=== PATIENT | female | born 1935 | race Caucasian/White ===

== ENCOUNTER 2021-05-04 13:01 | Emergency (ER) | payer MEDICARE, OTHER ==
[~2021-05-04] VITALS: Ht 162.6 cm; Wt 64.0 kg
[~2021-05-04 13:01] MED LIST: AMLODIPINE BESY10 MG PO; ASPIR 8181 MG PO; BIOTIN5000 MCG PO; CIPRO500 MG PO; CLOPIDOGREL75 MG PO; DAILY GARLIC O400 MG PO; FOLIC ACID1 MG PO; LOSARTAN POTAS100 MG PO; METFORMIN HCL500 M1 PO; METOPROLOL TAR100 MG PO; NIACIN500 M1 PO; PULMICORT FLE180 MCG INH; SIMVASTATIN40 MG PO; SPIRONOLACTONE25 MG PO; VENTOLIN HFA18 GM INH; VITAMIN C500 M1 PO; ZINC50 M1 PO
[2021-05-04] MEDS ORDERED: OMEPRAZOLE20 MG PO (13:25)
--- NOTE | 2021-05-04 15:14 | EKG ---
[facility] [address] [facility] [place] [address] Signed Normal sinus rhythm Left axis deviation Incomplete left bundle branch block Abnormal ECG When compared with ECG of 18-OCT-2016 13:01, Incomplete left bundle branch block is now present Confirmed by LAKHWINDER GORDON DO ([id number]) on 05/04/2021 3:14:00 PM Electronically Signed By: LAKHWINDER GORDON DO 05/04/21 1514 PATIENT NAME: JENNIFERBRYANMatthias ESCALANTE Electrocardiogram DATE OF : 39 PHYSICIAN: LAKHWINDER GORDON DO REPORT #: [id number] REPORT IS CONFIDENTIAL AND NOT TO BE RELEASED WITHOUT AUTHORIZATION
== END 2021-05-04 17:00 | disposition short-term general hospital (02) ==
LOC: ED 13:01
PROC: 0T2BX0Z Change Drainage Device in Bladder, External Approach (ICD-10-PCS; principal; 2021-05-04)
DX: S72.141A Displaced intertrochanteric fracture of right femur, initial encounter for closed fracture (principal); W18.30XA Fall on same level, unspecified, initial encounter; I10 Essential (primary) hypertension; E11.9 Type 2 diabetes mellitus without complications; I25.10 Atherosclerotic heart disease of native coronary artery without angina pectoris; J45.909 Unspecified asthma, uncomplicated; Z86.73 Personal history of transient ischemic attack (TIA), and cerebral infarction without residual deficits; Z91.041 Radiographic dye allergy status; Z88.0 Allergy status to penicillin; Z91.013 Allergy to seafood; Z88.5 Allergy status to narcotic agent; Z88.8 Allergy status to other drugs, medicaments and biological substances; Z91.040 Latex allergy status; Z79.82 Long term (current) use of aspirin; Z79.899 Other long term (current) drug therapy; Z20.822 Contact with and (suspected) exposure to COVID-19
CPT/HCPCS: 51702; 73502; 80053; 81001; 85025; 85610; 93005; 93010; 99285-25; C9803; J2405; J3010; U0003

== ENCOUNTER 2021-07-29 09:46 | Emergency (ER) | payer MEDICARE ==
[~2021-07-29] VITALS: Ht 162.6 cm; Wt 66.0 kg
[~2021-07-29 09:46] MED LIST changes: +OMEPRAZOLE20 MG PO
== END 2021-07-29 13:00 | disposition home or self-care (01) ==
LOC: ED 09:46
DX: U07.1 COVID-19 (principal); E11.9 Type 2 diabetes mellitus without complications; I10 Essential (primary) hypertension; J45.909 Unspecified asthma, uncomplicated; I25.10 Atherosclerotic heart disease of native coronary artery without angina pectoris; Z91.018 Allergy to other foods; Z91.040 Latex allergy status; Z88.8 Allergy status to other drugs, medicaments and biological substances; Z88.0 Allergy status to penicillin; Z88.5 Allergy status to narcotic agent; Z79.899 Other long term (current) drug therapy; Z79.82 Long term (current) use of aspirin; Z79.84 Long term (current) use of oral hypoglycemic drugs; Z23 Encounter for immunization; Z91.013 Allergy to seafood
CPT/HCPCS: 99283-25; M0247

== ENCOUNTER 2023-06-15 06:30 | Day surgery (SDC) | payer MEDICARE, OTHER ==
[2023-06-14 09:41] VITALS: BP 134/70
[~2023-06-15] VITALS: Ht 165.1 cm; Wt 55.5 kg
[~2023-06-15 06:30] MED LIST changes: +DIPYRIDAMOLE25 MG PO; -OMEPRAZOLE20 MG PO; +PRILOSEC OTC20 MG PO
[2023-06-15 06:53] VITALS: BP 176/67
[2023-06-15 07:56] LABS: ALBUMIN 2.5 g/dL (3.4-5.0); ALBUMIN/GLOBULIN RATIO 0.66 (1.1-2.4); BILIRUBIN, TOTAL 0.4 ng/dL (0.2-1.0); BUN/CREATININE RATIO 9.09 (6.0-28.6); CALCIUM 8.9 mg/dL (8.5-10.1); CREATININE, SERUM 1.1 mg/dL (0.55-1.02); PROTEIN, TOTAL 6.3 g/dL (6.4-8.2)
[2023-06-15 11:29] LABS: ANION GAP 15.1 (7-21); BUN/CREATININE RATIO 11.36 (6.0-28.6); CALCIUM 9.1 mg/dL (8.5-10.1); CREATININE, SERUM 0.88 mg/dL (0.55-1.02); POTASSIUM 3.1 mmol/L (3.5-5.1)
[2023-06-15 12:55] VITALS: BP 150/64
[2023-06-15 13:02] LABS: BASOPHILS 0.7 % (0-2); HEMOGLOBIN 10.5 g/dL (12.0-18.0)
[2023-06-15 13:04] LABS: EOSINOPHILS 0.7 % (0-6); HEMATOCRIT 32.8 % (35.0-50.0); LYMPHOCYTES 17.4 % (24-44); MCH 25.2 (27-36); MCHC 32.1 g/dl (30-36); MCV 78.5 fl (81-99); MONOCYTES 5.9 % (0-12); NEUTROPHILS 75.3 % (39-80); PLATELET COUNT 496 K/uL (140-440); RBC 4.18 M/ul (4.3-5.7); RDW 24.1 (10.5-15.0)
[2023-06-15 13:19] LABS: ALBUMIN 2.5 g/dL (3.4-5.0); ALBUMIN/GLOBULIN RATIO 0.69 (1.1-2.4); ANION GAP 12.8 (7-21); BILIRUBIN, TOTAL 0.4 ng/dL (0.2-1.0); BUN/CREATININE RATIO 10.46 (6.0-28.6); CALCIUM 8.9 mg/dL (8.5-10.1); CREATININE, SERUM 0.86 mg/dL (0.55-1.02); POTASSIUM 2.8 mmol/L (3.5-5.1); PROTEIN, TOTAL 6.1 g/dL (6.4-8.2)
[2023-06-18 08:06] LABS: CARCINOEMBRYONIC ANTIGEN 29.5 ng/mL (())
--- NOTE | 2023-06-20 09:17 | OR ---
[facility] [address] [place], [place] [address] Signed DATE OF OPERATION: 06/15/2023 SURGEON: Mitchell Bella MD PREOPERATIVE DIAGNOSES: Recent anemia, status post 3 units of packed red cell transfusion; palpable mass in right lower abdomen. CT scan findings consistent with ascending colon tumor. POSTOPERATIVE DIAGNOSES: 1. Two lesion of the right mid colon and cecal area, both consistent with neoplasm of colon. 2. Diverticulosis. 3. Sessile polyp, left colon. 4. Internal hemorrhoids. PROCEDURES: 1. Total colonoscopy to cecum with cold morcellation biopsies of cecal lesion and mid ascending colon lesion. 2. Endoscopic tattoo marking right mid colon and cecal area. 3. Cold snare polypectomy x1. ANESTHESIA: Intravenous sedation, propofol infusion; Mauro Garrett CRNA INDICATIONS: This debilitated 88-year-old white woman is a patient Dr. Young. She was seen on an urgent walk-in basis at the request of Dr. 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 She underwent a CT scan of the abdomen and pelvis on June 07, 2023, showing a lobulated wall thickening in the ascending colon measuring 6.5 cm in length with mild pericolonic stranding. There was no evidence of metastatic disease. Right-sided pericolonic lymph nodes were noted, the largest which was 9 mm in size. She has had no overt rectal bleeding and no hematemesis. She has had a weight loss of 20 pounds over the past few months and self described diarrhea. She is admitted at this time to undergo confirmatory colonoscopy rather of what is probably a right-sided colon cancer accounted for anemia, weight loss and so on. She understands as does her daughter, Jaimee. There are risk of bleeding, infection, perforation, and other unforeseen complications. Electronically Signed By: MITCHELL BELLA MD 06/20/23 0917 PATIENT NAME: BRYAN RODRIGUEZ OPERATIVE REPORT DATE OF : 39 REPORT #: [id number] PHYSICIAN: MITCHELL BELLA MD PCP: BETHANY YOUNG MD REPORT IS CONFIDENTIAL AND NOT TO BE RELEASED WITHOUT AUTHORIZATION [facility] [address] [place], [place] [address] Signed FINDINGS: The prep was quite good. Complete colonoscopy was undertaken to what appeared to be the cecum. There was a lobulated diffuse mass at the cecal level, which was biopsied and Endomark tattoo dye applied. In the mid ascending colon was another lesion not as large, but definitely worrisome for malignancy, which was similarly biopsied and tattooed. Remaining colon showed scattered diverticula and more intensely noted in the sigmoid and left colon and a sessile polyp of the left colon, requiring cold snare resection. Internal hemorrhoids were noted as well. PROCEDURE IN DETAIL: The patient was brought to the endoscopy suite and placed in lateral decubitus position given intravenous sedation to the point of slurred speech and nystagmus with full cardiopulmonary monitoring by the college teacher with propofol infusional sedation technique. Of note, she presented with hypokalemia with a preoperative serum potassium of 2.7. Repeat potassium this morning was 3.0. She underwent 20 mEq replacement of potassium and her potassium is now 3.1. She was additionally given magnesium sulfate. She was given intravenous sedation to the point of slurred speech and nystagmus. Digital rectal examination was performed which showed no sign of abnormality. An Olympus video colonoscope was passed in the rectum and manipulated throughout the colon noting diverticular changes in sigmoid and left colon. Scope was advanced beyond the transverse colon to what appeared to be the mid ascending colon. A somewhat amorphous smooth polypoid lesion was noted there. The scope was advanced further ultimately to what appeared to be the cecum and ileocecal valve was multilobulated but diffusely infiltrative mass of the cecum. This was multiply biopsied. The area was marked with Endomark tattoo dye using a sclerotherapy needle. Care was taken to apply dye on all sides of colon. The scope was withdrawn in the mid ascending colon lesion identified once again, tattoo markings applied similarly and biopsies additionally taken there. Further withdrawal of scope confirmed diverticular changes scattered through the transverse colon and more so in the left colon. A sessile polyp was noted in the left colon. This was excised with cold snare technique. The specimen was passed for pathology. Further withdrawal showed intense diverticular change of sigmoid. The rectum was normal. Retroflexed view was normal showing thin internal hemorrhoidal change. The scope was removed. The patient was taken to recovery room in good condition. CONCLUDING DIAGNOSES: Most likely neoplastic process at the cecum that is malignant. The possibility of Electronically Signed By: MITCHELL BELLA MD 06/20/23 0917 PATIENT NAME: BRYAN RODRIGUEZ OPERATIVE REPORT DATE OF : 39 REPORT #: [id number] PHYSICIAN: MITCHELL BELLA MD PCP: BETHANY YOUNG MD REPORT IS CONFIDENTIAL AND NOT TO BE RELEASED WITHOUT AUTHORIZATION [address] [place], [place] [address] Signed benign bulky lesion of the right mid colon was also noted. Both areas had been marked successfully with Endomark tattoo dye. Diverticular change of the sigmoid and left colon were noted to have a pull through the left colon unlikely to be malignant in any way. I will be recommending a right colectomy, possibly by a laparoscopic approach. We will obtain a CEA, Chem 20 and CBC today as baseline. She will follow up with us in the next week and we will make plans for resection depending on operative findings and so on. MD MAKAYLA Feliciano/MODL /[id number] cc: Dr. Young Copies: ~ Electronically Signed By: MITCHELL BELLA MD 06/20/23 0917 PATIENT NAME: BRYAN RODRIGUEZ OPERATIVE REPORT DATE OF : 39 REPORT #: [id number] PHYSICIAN: MITCHELL BELLA MD PCP: BETHANY YOUNG MD REPORT IS CONFIDENTIAL AND NOT TO BE RELEASED WITHOUT AUTHORIZATION
--- NOTE | 2023-06-21 12:08 | PATH ---
[facility] [address] [place], [place] [address] Signed SPECIMEN(S): A CECUM POLYP SPECIMEN(S): B MID ASCENDING POLYP SPECIMEN(S): C TRANSVERSE POLYP SPECIMEN(S): D SPLENIC FLEXURE POLYP, 30 CM SPECIMEN SOURCE: A. CECUM POLYP B. MID ASCENDING POLYP C. TRANSVERSE POLYP D. SPLENIC FLEXURE POLYP, 30 CM CLINICAL HISTORY: Colonoscopy with possible biopsy with Propofol. Abdominal mass, anemia, diarrhea. Postop: Neoplasm mid right colon, neoplasm cecum, diverticulosis, polyp. FINAL PATHOLOGIC DIAGNOSIS: A. 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 B. Mid ascending polyp: - Tubular adenoma with focal high-grade dysplasia. C. Transverse polyp: - Tubular adenoma (one fragment). D. Splenic flexure polyp at 30 cm: - Hyperplastic polyp (three fragments). COMMENT: Microsatellite instability testing by immunohistochemistry is pending on cecum polyp and will be reported in an addendum. As part of [facility]' Quality Improvement Program, this case was reviewed by another member of our pathology staff. Diagnostic notification to the office of Dr. Young is initiated by Dr. Dodge and will be recorded separately. JaunVR:IJN:erica MICROSCOPIC EXAMINATION: Histologic sections of all submitted blocks are examined by light microscopy. These findings, together with the gross examination, support the pathologic diagnosis. PATIENT NAME: BRYAN RODRIGUEZ PATHOLOGY DATE OF : 39 REPORT #: [id number] PHYSICIAN: QUANG WARD PCP: BETHANY YOUNG MD REPORT IS CONFIDENTIAL AND NOT TO BE RELEASED WITHOUT AUTHORIZATION [facility] [address] [place], [place] [address] Signed GROSS DESCRIPTION: A. The specimen, labeled and designated "Pointer, 1" and designated on the requisition "polypectomy, cecum, tumor," is received in formalin and consists of two valderrama, soft tissue fragments, ranging from 0.2-0.4 cm. Entirely submitted in (A1). B. The specimen, labeled and designated "Pointer, 2" and designated on the requisition "polypectomy, ascending/right, mid, neoplasm," is received in formalin and consists of two valderrama, soft tissue fragments, ranging from 0.3-0.4 cm. Entirely submitted in (B1). C. The specimen, labeled and designated "Pointer, 3" and designated on the requisition "polypectomy, transverse," is received in formalin and consists of one valderrama, soft tissue fragment, 0.4 cm. Entirely submitted in (C1). D. The specimen, labeled and designated "Pointer, 4" and designated on the requisition "30 cm, polypectomy, splenic flexure," is received in formalin and consists of one valderrama, soft tissue fragment, 0.7 cm. The possible resection margin is inked blue, and the piece is trisected and submitted entirely in (D1). AC (under the direct supervision of a pathologist) The Gross Description was prepared using a voice recognition system. The report was reviewed for accuracy; however, sound-alike word errors, addition and/or deletions may occur. If there is any question about this report, please contact Client Services. ADDITIONAL NOTES: Immunohistochemical and/or in situ hybridization studies if performed in this case included appropriate positive controls that reacted as expected. This test was developed and its performance characteristics determined by [facility]. It has not been cleared or approved by the U.S. Food and Drug Administration. The FDA has determined that such clearance or approval is not necessary. This test is used for clinical purposes. It should not be regarded as investigational or for research. [facility] is certified under the Clinical Laboratory Improvement Amendments of 1988 (CLIA) as qualified to perform high complexity clinical laboratory testing. PERFORMING LABORATORY: Technical component was performed by [facility], [address] [place] [id number] (CLIA# [id number]). Professional interpretation was performed by [facility] - [place] [facility], [address] PATIENT NAME: BRYAN RODRIGUEZ PATHOLOGY DATE OF : 39 REPORT #: [id number] PHYSICIAN: SUZYwalkby SYLVIA PCP: BETHANY YOUNG MD REPORT IS CONFIDENTIAL AND NOT TO BE RELEASED WITHOUT AUTHORIZATION [facility] [address] [place], [place] [address] [place] [address] (CLIA#: [id number]). Diagnostician: Adiel Dodge MD Pathologist Electronically Signed 06/20/2023 Copies: ~ PATIENT NAME: BRYAN RODRIGUEZ PATHOLOGY DATE OF : 39 REPORT #: [id number] PHYSICIAN: QUANG PATHOLOGY PCP: BETHANY YOUNG MD REPORT IS CONFIDENTIAL AND NOT TO BE RELEASED WITHOUT AUTHORIZATION
== END 2023-06-15 13:22 | disposition home or self-care (01) ==
LOC: DS 06:30 → OPS 06:30 → DS 07:30 → OPS 07:30
PROVIDERS: Nurse Anesthetist, Certified Registered; ATTEND Surgery
PROC: 0DBL8ZZ Excision of Transverse Colon, Via Natural or Artificial Opening Endoscopic (ICD-10-PCS; 2023-06-15)
PROC: 0DBG8ZZ Excision of Left Large Intestine, Via Natural or Artificial Opening Endoscopic (ICD-10-PCS; 2023-06-15)
PROC: 0DBK8ZZ Excision of Ascending Colon, Via Natural or Artificial Opening Endoscopic (ICD-10-PCS; principal; 2023-06-15 07:30)
DX: D12.2 Benign neoplasm of ascending colon (principal); D12.0 Benign neoplasm of cecum; D12.3 Benign neoplasm of transverse colon; K63.5 Polyp of colon; K64.8 Other hemorrhoids; K57.30 Diverticulosis of large intestine without perforation or abscess without bleeding; E11.22 Type 2 diabetes mellitus with diabetic chronic kidney disease; I12.9 Hypertensive chronic kidney disease with stage 1 through stage 4 chronic kidney disease, or unspecified chronic kidney disease; N18.9 Chronic kidney disease, unspecified; J45.909 Unspecified asthma, uncomplicated; R63.4 Abnormal weight loss; D50.9 Iron deficiency anemia, unspecified; Z86.73 Personal history of transient ischemic attack (TIA), and cerebral infarction without residual deficits; Z88.0 Allergy status to penicillin; Z88.5 Allergy status to narcotic agent; Z88.8 Allergy status to other drugs, medicaments and biological substances; Z90.79 Acquired absence of other genital organ(s)
CPT/HCPCS: 00811; 36415; 80048; 80053; 82378; 85025; 85060; 88305; 88341; 88342; J2001; J2704; J3475; J3480; J3490; J7060; J7121

== ENCOUNTER 2023-06-26 15:38 | Inpatient (IN) | payer MEDICARE, OTHER ==
[~2023-06-26] VITALS: Ht 165.1 cm; Wt 46.0 kg
--- NOTE | 2023-06-29 00:30 | NUR ---
ROUNDED ON pt, pt RESTING IN BED ON RA. RR EVEN AND UNLABORED. NO DISTRESS NOTED. IV SITE WNL, FLUIDS INFUSING DIRECTED. CALL LIGHT IN REACH.
[2023-06-29 08:15] VITALS: BP 130/56
[2023-06-29] MEDS ORDERED: DIPYRIDAMOLE25 MG (08:23)
[2023-06-29] MEDS ORDERED: IRBESARTAN150 MG PO (08:30)
--- NOTE | 2023-06-29 09:50 | NUR ---
CCU ROUNDS. PT ACCOMPANIED BY DAUGHTER SUSAN. BOTH EXPRESSED HOPE AND OPTIMISM. PROVIDED SUPPORTIVE PRESENCE; FACILITATED STORY TELLING; PROVIDED SILENT PRAYER.
--- NOTE | 2023-06-29 10:34 | NUR ---
dr patton and disk recordist both in to see pt.
--- NOTE | 2023-06-29 15:12 | NUR ---
06/29/23 1512 Skyla Vinson PT TO PACU ORAL AIWAY IN PLACE O2 VIA MASK FOGGING NOTED IN MASK. PT NEEDS JAW THRUST TO MAINTAIN AIRWAY.
[2023-06-29 16:30] VITALS: BP 133/55
--- NOTE | 2023-06-29 16:30 | NUR ---
PT ARRIVES TO FLOOR IN BED ACCOMPANIED BY KERRY Judge RN. BEDSIDE REPORT RECEIVED. PT RESPONDS WHEN ADDRESSED. VITALS COMPLETE. CPOX PLACED. MIDLINE DRESSING TO ABD NOTED TO HAVE SCANT AMOUNT OF DRAINAGE. RLQ LAP SITE STERI STRIPS IN PLACE SCANT AMOUNT OF DRAINAGE NOTED, OTHERWISE D/I LLQ LAP SITE STERI STRIPS IN PLACE WITH SCANT AMOUNT OF DRAINAGE NOTED, OTHERWISE D/I. MID UPPER ABD LAP SITE COVERED WITH GAUZE D/I WITH SCANT AMOUNT OF DRAINAGE NOTED. IV FLUSHES WNL. IV FLUIDS STARTED, SEE MAR. PT REFUSES PO MEDICATIONS AT THIS TIME AND STATES "I WANT TO SLEEP." PT DENIES ANY OTHER NEEDS AT THIS TIME. CALL LIGHT IN REACH. FAMILY IN ROOM.
[2023-06-29 17:30] VITALS: BP 130/57
--- NOTE | 2023-06-29 17:38 | NUR ---
IN TO ROUND ON PT. PT RESTING IN BED SEMI-FOWLERS WITH EYES CLOSED, RR EVEN AND UNLABORED. PT RESPONDS WHEN ADDRESSED. TAWNY EUCEDA IN ROOM. VITALS AND I&Os COMPLETE. ASSESSMENT COMPLETE. LUNG SOUNDS CLEAR IN RUL AND CARMEN. DIMISHED IN RLL AND LLL. BOWEL TONES HYPOACTIVE. ABD TENDER WITH PALPATION. PT CONTINUES TO REST. PT DENIES ANY OTHER NEEDS AT THIS TIME. CALL LIGHT IN REACH. FAMILY IN ROOM.
[2023-06-29] MEDS ORDERED: ASPIRIN-DIPYRI1 EACH PO (17:53)
[2023-06-29] MEDS ORDERED: SIMVASTATIN20 MG PO (17:53)
[2023-06-29] MEDS ORDERED: SUCRALFATE1 GM PO (17:54)
[2023-06-29] MEDS ORDERED: METFORMIN HCL500 MG PO (17:54)
[2023-06-29 18:34] VITALS: BP 131/59
--- NOTE | 2023-06-29 18:40 | NUR ---
IN TO ROUND ON PT. PT LAYIG IN BED. PT RESPONDS WHEN ADDRESSED. VITALS COMPLETE. PT REQUESTING TO BE REPOSITIONED. TAMIKO TY IN TO ASSIST WITH TURNING PT TO LEFT SIDE. PILLOWS PLACED BEWTEEN KNEES AND UNDER RIGHT SIDE. IV INFUSING WNL. PT DENIES ANY OTHER NEEDS AT THIS TIME. CALL LIGHT IN REACH. FAMILY IN ROOM.
[2023-06-29 19:15] VITALS: BP 130/53
--- NOTE | 2023-06-29 19:15 | NUR ---
SHIFT REPORT RECEIVED FROM DAYSFLFT TAMIKO العلي AT BEDSIDE. pt AWAKE AND RESTING IN BED, BOOSTED IN BED, LAYING ON LEFT SIDE. MIDLINE DRESSING IN PLACE TO ABD ALONG WITH X3 LAP SITES-ALL WNL WITH SCANT RED SHADOWING. IV SITE WNL, FLUIDS INFUSING DIRECTED. NO ADDITIONAL NEEDS OR CONCERNS VERBALIZED. CALL LIGHT IN REACH AND LAST SET POST OP VSS AND CHARTED.
--- NOTE | 2023-06-29 19:18 | EKG ---
[facility] [address] [facility] [place] [address] Signed Normal sinus rhythm Left axis deviation Incomplete left bundle branch block Minimal voltage criteria for LVH, may be normal variant Abnormal ECG When compared with ECG of 04-MAY-2021 13:44, Inverted T waves have replaced nonspecific T wave abnormality in Inferior leads Confirmed by NADJA YOON MD ([id number]) on 06/29/2023 7:18:24 PM Electronically Signed By: NADJA YOON 06/29/23 1918 PATIENT NAME: BRYAN RODRIGUEZ AVA Electrocardiogram DATE OF : 39 PHYSICIAN: NADJA YOON REPORT #: [id number] REPORT IS CONFIDENTIAL AND NOT TO BE RELEASED WITHOUT AUTHORIZATION
[2023-06-29 20:24] VITALS: BP 128/63
--- NOTE | 2023-06-29 20:35 | NUR ---
PT. CALLED NURSES STATION REQUESTING REPOSITIONING ASSISTANCE. THIS RETRIMMER AND PRIMARY RN ASSISTED PT. TO SIT UP IN BED. PT. VITALS AND I/OS DOCUMENTED APPROPRIATELY. PT. ASSISTED WITH DRINKS OF FRESH WATER. CALL LIGHT LEFT WITHIN REACH. NO OTHER IMMEDIATE NEEDS AT THIS TIME.
--- NOTE | 2023-06-29 21:02 | NUR ---
ASSESSMENT COMPLETE, SCHEDULED MEDS GIVEN, VSS. NO ISSUES SWALLOWING NOTED. MIDLINE AND LAP SITES X3 REMAIN THE SAME REGARDING SHADOWING, SMALL LUMP NOTED UNDER LLQ LAP SITE, STRIKE PLATE ATTACHER MARSHALL AWARE AND ALSO ASSESSED SITE. pt REPORTS TOLERABLE PAIN AT 3/10, DENIES NAUSEA. CALL LIGHT IN REACH.
--- NOTE | 2023-06-29 21:45 | NUR ---
DR BELLA AT RN STATION AND ASSESSED SMALL LUMP LIKE SITE TO LLQ STERI STRIP SITE, SITE ASSESSED BY DR BELLA, PER MD, SITE WNL AND ABD OVERALL WNL POST-OP. ALSO DISCUSSED WITH DR BELLA REGARDING BLOOD SUGAR CHECKS pt IS DIABETIC, DR BELLA TO PLACE ORDERS FOR BLOOD SUGAR CHECKS. NO FURTHER NEEDS, CALL LIGHT IN REACH.
--- NOTE | 2023-06-29 22:40 | NUR ---
SCHEDULED TYLENOL AND IV ABX GIVEN-SEE EMAR. IV SITE WNL, FLUIDS INFUSING DIRECTED. BED RESTING IN BED WITH HOB ELEVATED, CALL LIGHT IN REACH. CPOX REMAINS ON FOR SAFETY.
--- NOTE | 2023-06-29 23:08 | NUR ---
PRIMARY RN ASKED THIS DIRECTOR PATIENT ACCOUNTING TO OBTAIN GLUCOSE CHECK ON PT. RN NOTIFIED OF GLUCOSE READING. PT. REQUESTS ASSISTANCE WITH REPOSITIONING THIS DIRECTOR PATIENT ACCOUNTING ASSISTED PT. CALL LIGHT LEFT WITHIN REACH. NO OTHER NEEDS AT THIS TIME.
--- NOTE | 2023-06-29 23:20 | NUR ---
DR BELLA LEFT HOSPITAL WITHOUT PLACING ORDERS FOR INSULIN SS, TELEPHONE CALL MADE TO DR BELLA AND TELEPHONE ORDER READ BACK FOR REGULAR HUMULIN INSULIN [facility], LOW SCALE. PILOT CONTROL OPERATOR HELPERTAMIKO OLIVARES TO PLACE ORDER AND ADMINISTER INSULIN SS DIRECTED, MD AWARE OF EVENING BS RESULT OF 214.
[2023-06-30] VITALS (8 sets, daily range): BP systolic 113–139; BP diastolic 46–55
--- NOTE | 2023-06-30 00:30 | NUR ---
ROUNDED ON pt, pt RESTING IN BED ON RA. RR EVEN AND UNLABORED. NO DISTRESS NOTED. IV SITE WNL, FLUIDS INFUSING DIRECTED. CALL LIGHT IN REACH.
--- NOTE | 2023-06-30 02:23 | NUR ---
PRN BLOOD GLUCOSE TAKEN PER RN REQUES. PT. COLON BAG EMPTIED, I/O CHARTED. FRESH WATER PROVIDED. CALL LIGHT LEFT WITHIN REACH. NO OTHER NEEDS AT THIS TIME.
--- NOTE | 2023-06-30 03:32 | NUR ---
ASSESSMENT COMPLETE, NO ACUTE CHANGES. pt REPROTS MINIMAL PAIN TO ABD, RATES 1/10, DENIES NAUSEA. PROVDIED AND EDUCATED pt ON USE OF IS, DISCUSSED POC REGARDING POST-OP. SCD'S IN PLACE, CALL LIGHT IN REACH. pt RESTING IN BED, ON BACK HOB ELEVATED, pt DENEIS NEED TO BE POSITIONED AT THIS TIME. CALL LIGHT IN REACH. IV SITE WNL, FLUIDS INFUSING DIRECTED.
[2023-06-30 05:43] LABS: BASOPHILS 0.4 % (0-2); HEMATOCRIT 23.3 % (35.0-50.0); HEMOGLOBIN 7.6 g/dL (12.0-18.0); LYMPHOCYTES 6.5 % (24-44); MCH 25.4 (27-36); MCHC 32.6 g/dl (30-36); MCV 77.9 fl (81-99); MONOCYTES 3.7 % (0-12); NEUTROPHILS 89.4 % (39-80); PLATELET COUNT 410 K/uL (140-440); RBC 2.99 M/ul (4.3-5.7); RDW 24.7 (10.5-15.0)
[2023-06-30 06:00] LABS: ALBUMIN/GLOBULIN RATIO 0.65 (1.1-2.4); ANION GAP 12.3 (7-21); BILIRUBIN, TOTAL 0.4 ng/dL (0.2-1.0); BUN/CREATININE RATIO 8.49 (6.0-28.6); CALCIUM 8.3 mg/dL (8.5-10.1); CREATININE, SERUM 1.06 mg/dL (0.55-1.02); POTASSIUM 4.3 mmol/L (3.5-5.1); PROTEIN, TOTAL 5.1 g/dL (6.4-8.2)
--- NOTE | 2023-06-30 06:08 | NUR ---
rounded on pt, pt resting quietly in bed with eyes closed. on ra, rr even and unlabored, no distress noted. iv site wnl, fluids infusing as directed.
--- NOTE | 2023-06-30 06:44 | NUR ---
SCHEDULED TYLENOL GIVEN FOR REPORTED 4/10 PAIN TO ABD, SEE EMAR. IV SITE WNL, FLUIDS INFUSING DIRECTED. pt PLACED ON BEDPAN FOR POSSIBLE BM. CALL LIGHT IN REACH.
--- NOTE | 2023-06-30 07:25 | NUR ---
REPORT RECEIVED FROM TAMIKO ZELAYA. PT LAYING IN BED SEMI-FOWLERS. PT RESPONDS WHEN ADDRESSED. PT REPORTING RIGHT SHOULDER PAIN. TAMIKO PHILLIPS PROVIDES PT HOT PACK FOR SHOULDER. IV INFUSING WNL. PT DENIES ANY OTHER NEEDS AT THIS TIME. CALL LIGHT IN REACH.
--- NOTE | 2023-06-30 07:52 | NUR ---
at shift change, anode rebuilder infomred this rn that while wiping pt blood noted. this rn and rn holley (taking over pt care) in room to assess, while assessing inbetween buttocks, red blood ran from rectum. dangelo pad in place and vs taken and stable. dr patton updated and made aware of red blood from rectum, vs, and am h&h (7.6 and 23.3). reports this is expected regarding procedure, telephone order read back for repeat cbc at noon. dayshift ethel schwartz and dayshift charge cinthya both aware and updated,call light in reach.
[2023-06-30] MEDS ORDERED: VENTOLIN HFA18 GM INH (08:57)
--- NOTE | 2023-06-30 09:00 | NUR ---
MED REC COMPLETE
--- NOTE | 2023-06-30 09:06 | NUR ---
IN TO ADMINISTER MEDICATIONS, SEE MAR. PT TAKES PO MEDICATION WITH NO ISSUES. PT REPORTING PAIN 4/10 IN RIGHT SHOULDER. HOT PACK IN PLACE. PT REFUSES PRN TORODAL WHEN OFFERED. PT SITTING UP IN BED EATING BREAKFAST AND RESPONDS WHEN ADDRESSED. ASSESSMENT COMPLETE. PT A&O TO SELF, DATE, PLACE, SITUATION, AND SURROUNDINGS. LUNG SOUNDS CLEAR THROUGHOUT. BOWEL TONES ACTIVE. ABD TENDER WITH PALPATION. ABD DISTENTION NOTED. ABD FIRM IN LLQ WITH PALPATION. MIDLINE ABD INCISION DRESSING D/I WITH SCANT AMOUNT OF SHADOWING NOTED. UPPER MIDLINE LAP SITE STERI-STRIPS IN PLACE WITH SMALL AMOUNT OF SHADOWING NOTES, OTHERWISE D/I. RLQ LAP SITE STERI STRIPS IN PLACE WITH SCANT AMOUNT OF SHADOWING NOTED, OTHERWISE D/I. LLQ LAP SITE STERI STRIPS IN PLACE D/I WITH SCANT AMOUNT OF SHADOWING NOTED. 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 PT DENIES ANY OTHER NEEDS AT THIS TIME. CALL LIGHT IN REACH.
--- NOTE | 2023-06-30 10:23 | NUR ---
MS GARCES. PT INDICATED DISCOMFORT. TAMIKO GONZALEZ. PT AND DAUGHTER EXPRESSED SITUATIONALLY APPROPRIATE RESPONSES. LISTENED EMPATHETICALLY; PROVIDED SUPPORTIVE PRESENCE; PROVIDED SILENT PRAYER.
--- NOTE | 2023-06-30 10:24 | NUR ---
IN TO ROUND ON PT. PT SITTING UP IN BED VISITING WITH STANFORD NEGRETE AND FAMILY MEMBER. PT REPORTING PAIN IN RIGHT SHOULDER 02/16. PT REFUSES PRN TORADOL WHEN OFFERED. PT ACCEPTS HOT PACK. HOT PACK PLACED TO RIGHT SHOULDER PT REPORTS PAIN 08/19. IV ABX STARTED, SEE SEP. PT DENIES ANY OTHER NEEDS FROM THIS RN AT THIS TIME. CALL LIGHT IN REACH. FAMILY IN ROOM.
--- NOTE | 2023-06-30 10:50 | NUR ---
IN WITH TAWNY ANDERSON TO GET PT UP OUT OF BED. PT ABLE TO SIT UP ON EDGE OF BED BY SELF AND PT STANDS AT EDGE OF BED WITH FWW AND 2 PEOPLE SBA. KIRTI RED BLOOD NOTED TO BE COMING OUT OF PTs RECTUM. BLUE ATTENDS WEIGHED AND NOTED TO BE 26g COMPARED TO NEW BLUE ATTENDS. TAMIKO PHILLIPS IN ROOM ASSISTING WITH WEIGHING ATTENDS. PT STATES "I THINK I NEEDS TO SIT ON THE BSC." PT ON BSC. PT REQUESTING SOME TIME. CALL LIGHT IN PTs HAND. PT INFORMED TO CALL WHEN READY. PT VERBALIZES UNDERSTANDING.
--- NOTE | 2023-06-30 11:00 | NUR ---
WHEN I EMPTIED PATIENT'S BED SIDE COMMODE HAD SEVENTY-FIVE MLS OF BLOOD. NURSE NOTIFIED
--- NOTE | 2023-06-30 11:15 | NUR ---
IN WITH TAWNY HUNG TO ANSWER CALL LIGHT. PT REPORTS BEING FINISHED ON BSC. PT STANDS WITH FWW BY SELF AND IS ABLE TO AMBULATE TO RECLINER AFTER MARY-CARE IS PERFORMED. TAWNY EUCEDA IN TO ASSIST TAWNY HUNG LEAVES. PT SITTING IN RECLINER. NO OTHER NEEDS FROM THIS RN AT THIS TIME. TAWNY EUCEDA STILL IN ROOM.
[2023-06-30 12:16] LABS: BASOPHILS 0.3 % (0-2); EOSINOPHILS 0.3 % (0-6); HEMATOCRIT 23.1 % (35.0-50.0); HEMOGLOBIN 7.5 g/dL (12.0-18.0); LYMPHOCYTES 10.8 % (24-44); MCH 25.3 (27-36); MCHC 32.4 g/dl (30-36); MCV 78.1 fl (81-99); MONOCYTES 3.2 % (0-12); NEUTROPHILS 85.4 % (39-80); PLATELET COUNT 392 K/uL (140-440); RBC 2.95 M/ul (4.3-5.7); RDW 25.3 (10.5-15.0)
--- NOTE | 2023-06-30 12:49 | NUR ---
UR NOTE [facility] BOWEL SURGERY: COLECTOMY, WITH OR WITHOUT OSTOMY, BY LAPAROSCOPY (ISC) 06/29/23 MET CLINICAL INDICATIONS FOR PROCEDURE GL DAY 1
--- NOTE | 2023-06-30 13:12 | NUR ---
THIS RN NOTIFIED DR. BELLA OF 75ML BLOOD FROM PTs RECTUM WHILE PT WAS UP TO BSC EARLIER. AWARE.
--- NOTE | 2023-06-30 13:40 | NUR ---
THIS RN CALLED DR. BELLA REGARDING PTs URINE OUTPUT. NEW ORDERS RECEIVED, VERIFIED WITH READBACK.
--- NOTE | 2023-06-30 13:45 | NUR ---
IN TO ROUND ON PT. TAWNY EUCEDA IN ROOM. BOLUS STARTED PER DR. BELLA ORDERS. PT DENIES ANY OTHER NEEDS AT THIS TIME. CALL LIGHT IN REACH. FAMILY IN ROOM.
--- NOTE | 2023-06-30 14:43 | NUR ---
IN TO ADMINISTER MEDICATIONS, SEE MAR. PT AWAKENS AND RESPONDS WHEN ADDRESSED. PT TAKES PO MEDICATION WITH NO ISSUES. PT REPORTING ABD PAIN /. SCHEDULED TYLENOL ADMINISTERED, SEE MAR. ASSESSMENT COMPLETE. LUNG SOUNDS CLEAR IN RUL, CARMEN AND RLL. DIMINISHED IN LLL. BOWEL TONES ACTIVE. PT REPORTS ABD TENDERNESS WITH PALPATION. DISTENTION NOTED. NO CHANGES TO MIDLINE INCISION DRESSING FROM PREVIOUS ASSESSMENT. NO CHANGES TO LAP SITES FROM PREVIOUS ASSESSMENT. IV INFUSING WNL. PT DENIES ANY OTHER NEEDS AT THIS TIME. CALL LIGHT IN REACH. FAMILY IN ROOM.
--- NOTE | 2023-06-30 15:00 | NUR ---
Spoke with Lauren. She states she lives in a house and has a ramp. She lives with her daughter, Jaimee. She uses a cane, walker, or wc when needed. She denies financial issues. She denies needs and plans on dc to home when medically cleared by MD. She does not drive, but daughter drives her.
--- NOTE | 2023-06-30 15:20 | NUR ---
IN FAMILY MEMBER TO NURSES STATION REPORTING PT IS FEELING NAUSEOUS. THIS RN TO ROOM WITH CALRISA DURAN. PT STATES "I AM NO NAUSEOUS ANY MORE." PT DENIES PRN LMAN WHEN OFFERED. PT REPORTING "STOMACH PAIN, NOT ABD PAIN." PT STATES "IT FEELS LIKE IT IS FULL. LIKE I ATE TOO SOON." PT REQUESTING TO SIT UP IN HIGH FOWLERS. PT UP IN HIGH FOWLERS. OFFERED TO ASSIST PT TO RECLINER. PT STATES "NO I CANNOT MAKE IT THAT FAR." INFORMED PT THAT THIS RN COULD PULL CHAIR UP CLOSE TO BED SO PT ONLY HAS TO STAND AND TURN TO SIT DOWN. PT STILL REFUSES. PT HOLDING ABD. COLON NOTED TO ONLY HAVE 50ML OUT AFTER BOLUS INFUSION. NO NEW BLOOD NOTED TO PTs ATTENDS. TAWNY EUCEDA IN TO BLADDER SCAN PT.
--- NOTE | 2023-06-30 16:20 | NUR ---
IN TO ATTEMPT TO DRAW LABS FROM PTs IV LAB WAS UNSUCCESSFUL WITH GETTING ANY BLOOD. UNABLE TO DRAW LABS FROM IV SITE DUT TO SLUGGISH BLOOD RETURN. IV SITE FLUSHED WITH 20ML NS PULSATILE FLUSH. TAMIKO PHILLIPS TO ATTEMPT TO DRAW LABS AND IS SUCCESSFUL. IV FLUIDS STARTED BACK UP AND IV DRESSING BECOMES WET. IV FLUIDS STOPPED. DRESSING REMOVED AND IV FLUSHED. NO LEAKING FROM SITE NOTED. NEW DRESSING APPLIED. IV FLUSHED WITH NS AGAIN. NO LEAKING NOTED. IV FLUIDS RESUMED. PT REPORTING PAIN 4/10 TO "STOMACH." OFFERED TO ASSIST PT UP TO RECLINER. PT REFUSED. TAWNY EUCEDA IN ROOM OBTAINING BG. PT DENIES ANY OTHER NEEDS FROM THIS RN AT THIS TIME. CALL LIGHT IN REAC.
[2023-06-30 16:39] LABS: BASOPHILS 0.4 % (0-2); HEMATOCRIT 22.5 % (35.0-50.0); HEMOGLOBIN 7.1 g/dL (12.0-18.0); LYMPHOCYTES 12.4 % (24-44); MCH 24.8 (27-36); MCHC 31.5 g/dl (30-36); MCV 78.8 fl (81-99); MONOCYTES 2.4 % (0-12); NEUTROPHILS 84.8 % (39-80); PLATELET COUNT 383 K/uL (140-440); RBC 2.85 M/ul (4.3-5.7); RDW 25.4 (10.5-15.0)
--- NOTE | 2023-06-30 17:16 | NUR ---
THIS RN CALLED DR. BELLA WITH PTs LAB RESULTS. AND UPDATED HIM ON PTs URINE OUTPUT. ALSO ASKED FOR SOMETHING ELSE FOR PAIN. VERBAL ORDERS REVEIVED. VERIFIED WITH READBACK.
[2023-06-30 18:30] LABS: ABO O; ANTIBODY SCREEN NEGATIVE; RH POSITIVE
--- NOTE | 2023-06-30 18:32 | NUR ---
IV PUMP ALARMING, RESOLVED. BOLUS COMPLETE. IV FLUIDS RESUMED AT RATE OF 85ML/HR. PT REQUESTING BLANKET. BLANKET PROVIDED. PT DENIES ANY OTHER NEEDS AT THIS TIME. CALL LIGHT IN REACH.
--- NOTE | 2023-06-30 19:14 | NUR ---
SHIFT REPORT RECEIVED BY ZOHRA MORRISON, PT RESTING QUIETLY, WITHOUT REQUESTS AT THIS TIME.
--- NOTE | 2023-06-30 20:50 | NUR ---
PT RESTING WITH EYES CLOSED, AWAKENS EASILY, VS DONE AND STABLE, PT AEBRILE, ASSESSMENT COMPLETED, ACCUCHECK DONE AND 136, NO SS INSULIN REQUIRED, ATTENDS CHECKED NO STOOL NOTED AT THIS TIME, COLON PATENT AND EMPTIED FOR 125ML YELLOW URINE, CATH CARE GIVEN, IV PATENT AND CONTINUES WITH LR AT 85ML/HR, SITE INTACT IN LEFT AC, ARM PLACED ON PILLOW. PT ABLE TO TAKE RT PO MEDICATIONS WITH SIPS OF WATER AND HOB ELEVATED, LEFT TILT, SCDS IN PLACE, ABD DRESSINGS INTACT WITH SHOLLOWING OF DRAINAGE UPPER ABD AND MIDLINE DRESSING.
--- NOTE | 2023-06-30 22:00 | NUR ---
PT ASLEEP, AWAKENS EASILY, RT TYLENOL GIVEN FOR ABDOMINAL PAIN 12/17, NEW BAG LR HUNG AND CONTINUES TO BE AT 85ML/HR PER LEFT AC, SITE INTACT. PT WITHOUT REQUESTS AT THIS TIME. RESTING.
--- NOTE | 2023-06-30 22:50 | NUR ---
PT ASLEEP, RESP EVEN AND REG WITHOUT DISTRESS.
--- NOTE | 2023-07-01 00:20 | NUR ---
PT APPEARS TO SLEEP, RESP EVEN AND REG, IV INFUSING WELL.
--- NOTE | 2023-07-01 02:30 | NUR ---
PT REPOSITIONED IN BED, NOT BLOODY STOOLS NOTED, COLON OUT 275ML YELLOW URINE, IV PATENT AND INFUSING WELL.
--- NOTE | 2023-07-01 04:10 | NUR ---
PT APPEARS TO SLEEP, RESP EVEN AND REG, WITHOUT DISTRESS.
--- NOTE | 2023-07-01 05:30 | NUR ---
LAB IN FOR AM BLOOD DRAW.
[2023-07-01 05:41] LABS: HEMATOCRIT 22.1 % (35.0-50.0); HEMOGLOBIN 7.1 g/dL (12.0-18.0); MCH 25.2 (27-36); MCHC 32.3 g/dl (30-36); MCV 78.1 fl (81-99); PLATELET COUNT 391 K/uL (140-440); RBC 2.83 M/ul (4.3-5.7); RDW 25.7 (10.5-15.0)
[2023-07-01 05:55] VITALS: BP 144/50
--- NOTE | 2023-07-01 05:55 | NUR ---
PT AWAKE, VS DONE AND STABLE, COLON EMPTIED FOR 350ML YELLOW URINE, ABDOMINAL DRESSINGS UNCHANGED FAR DRAINAGE, NOT BLOODY STOOLS NOTED TONIGHT, IV SITE PATENT, SCDS REMAIN IN PLACE, PT DENIES NEEDS AT THIS TIME, ATTEMPTING TO REST.
--- NOTE | 2023-07-01 06:00 | NUR ---
PT MEDICATED WITH RT TYLENOL FOR PAIN 09/16.
[2023-07-01 07:08] LABS: LYMPHOCYTES, MANUAL DIFF 7; MONOCYTES, MANUAL DIFF 1; NEUTROPHILS, MANUAL DIFF 92
--- NOTE | 2023-07-01 07:15 | NUR ---
REPORT RECEIVED FROM ADRY Cardenas RN. PT RESTING IN BED SEMI-FOWLERS WITH EYES CLOSED. RR EVEN AND UNLABORED. CPOX IN PLACE SHOWING O2 SATS AT 94% ON RA. NO NEEDS IDENTIFIED AT THIS TIME. CALL LIGHT IN REACH.
[2023-07-01 09:00] VITALS: BP 126/54
--- NOTE | 2023-07-01 09:10 | NUR ---
IN TO ADMINISTER MEDICATIONS, SEE MAR. PT SITTING UP IN BED AND RESPONDS WHEN ADDRESSED. PT TAKES PO MEDICATIONS WITH NO ISSUES. PT REPORTS FEELING NAUSEOUS. PRN ZOFRAN ADMINISTERED, SEE MAR. OFFERED TO GET PT UP TO RECLINER. PT ACCEPTS. 1PA WITH FWW FROM BED TO RECLINER. PT REPORTING PAIN 3/10 IN RIGHT SHOULDER, HOT PACK PROVIDED. ASSESSMENT COMPLETE. LUNG SOUNDS CLEAR. BOWEL TONES ACTIVE. ABD FIRM WITH PALPATION. PT REPORTS ABD TENDERNESS WITH PALPATION. DISTENTION TO ABD NOTED. MIDLINE SURGICAL SITE DRESSING D/I WITH SCANT AMOUNT OF SHADOWING NOTED. MID UPPER ABD LAP SITE STERI-STRIPS IN PLACE D/I WITH SMALL AMOUNT OF SHADOWING NOTED. RLQ LAP SITE STERI-STRIPS IN PLACE D/I WITH SCANT AMOUNT OF SHADOWING NOTED. LLQ LAP SITE STERI-STRIPS IN PLACE D/I WITH SCANT AMOUNT OF SHADOWING NOTED. IV FLUSHES WNL. PT SITTING UP IN RECLINER VISITING WITH DAUGHTER. CALL LIGHT IN REACH. PT DENIES ANY OTHER NEEDS AT THIS TIME.
--- NOTE | 2023-07-01 11:30 | NUR ---
IN TO ROUND ON PT. PT SITTING UP IN RECLINER. PT RESPONDS WHEN ADDRESSED. PT REQUESTING TO GET BACK INTO BED. SBA WITH FWW FROM RECLINER TO BED. TAMIKO GARVEY IN TO ASSIST WITH BOOSTING PT UP IN BED. PT BOOSTED. SCDs IN PLACE. BILATERAL ARMS ELEVATED ON PILLOWS. PT DENIES ANY OTHER NEEDS AT THIS TIME. CALL LIGHT IN REACH.
--- NOTE | 2023-07-01 12:12 | NUR ---
IN TO ADMINISTER MEDICATION, SEE MAR. PT SITTING UP IN BED AND RESPONDS WHEN ADDRESSED. PT DENIES PAIN AT THIS TIME. PT DENIES ANY OTHER NEEDS AT THIS TIME. CALL LIGHT IN REACH.
--- NOTE | 2023-07-01 12:47 | NUR ---
IN TO ROUND ON PT. PT SITTING UP IN BED WITH LUNCH TRAY. PT DENIES ANY NEEDS AT THIS TIME. CALL LIGHT IN REACH.
--- NOTE | 2023-07-01 13:10 | NUR ---
IN TO ANSWER CALL LIGHT. PT SITTING UP IN BED. PT REPORTS BEING FINISHED WITH LUNCH. TRAY REMOVED. PT REPOSITIONED IN BED. PT STATES "I AM GOING TO TRY AND REST NOW." PT DENIES ANY OTHER NEEDS AT THIS TIME. CALL LIGHT IN REACH.
--- NOTE | 2023-07-01 13:54 | NUR ---
IN TO ANSWER CALL LIGHT. PT REPORTS BEING COLD. WARM BLANKET PROVIDED. PT LAYING IN BED SEMI-FOWLERS. PT DENIES ANY OTHER NEEDS AT THIS TIME. CALL LIGHT IN REACH.
--- NOTE | 2023-07-01 14:00 | NUR ---
IN WITH DR. BELLA. PT SITTING UP IN BED. PT REPSONDS WHEN ADDRESSED. VERBAL ORDER TO REMOVE COLON, VERIFIED WITH READBACK. SCHEDULED TYLENOL ADMINISTERED, SEE MAR. PT TAKES PO MEDICATIONS WITH NO ISSUES. 1406 COLON REMOVED WNL. PT REQUESTING TOILETING. TAWNY EUCEDA IN ROOM TO COMPLETE VITALS AND I&Os. VITALS AND I&Os COMPLETE. SBA WITH FWW FROM BED TO BSC. PT REQUESTING SOME PRIVACY. CALL LIGHT IN PTs HAND. PT DENIES ANY OTHER NEEDS AND PT STATES "I WILL CALL WHEN I AM DONE."
[2023-07-01 14:03] VITALS: BP 136/58
--- NOTE | 2023-07-01 15:30 | NUR ---
Patient reports she is done using the commode. Jaci care done, new brief placed. Primary RN requested patient walk. Attempted to have patient walk with me in hallway, pt stood briefly then stated she was too weak to walk in hallway at this time. Patient back to bed.
--- NOTE | 2023-07-01 15:43 | NUR ---
IN TO ROUND ON PT. PT LAYING IN BED SEMI-FOWLERS. EYES CLOSED. RR EVEN AND UNLABORED. PT AWAKENS AND RESPONDS WHEN ADDRESSED. ASSESSMENT COMPLETE. LUNG SOUNDS CLEAR. BOWEL TONES ACTIVE. ABD TENDER WITH PALPATION. ABD DISTENTION NOTED. ABD FIRM. MIDLINE INCISION SITE NO CHANGES TO DRESSING, D/I. MIDLINE UPPER LAP SITE STERI-STRIPS NO CHANGES, D/I. RLQ LAP SITE STERI-STRIPS NO CHANGE, D/I. LLQ LAP SITE STERI-STRIPS NO CHANGE, D/I. PT DENIES ANY OTHER NEEDS AT THIS TIME. CALL LIGHT IN REACH.
--- NOTE | 2023-07-01 17:03 | NUR ---
IN TO ANSWER CALL LIGHT. PT REPORTING TOILETING NEEDS. SBA WITH FWW FROM BED TO BSC. PT REQUESTING SOME TIME. CALL LIGHT IN PTs HAND.
--- NOTE | 2023-07-01 17:10 | NUR ---
IN TO ANSWER CALL LIGHT. PT DONE WITH TOILETING. SCANT AMOUNT OF KIRTI RED BLOOD NOTED FROM PTs RECTUM. VOID NOTED. SBA WITH FWW FROM BSC TO BED. YUSUF Holder RN IN TO ASSIST WITH BOOSTING PT. DINNER TRAY ARRIVES. PT REPOSITIONED IN BED AND SET UP FOR DINNER. PT DENIES ANY OTHER NEEDS AT THIS TIME. CALL LIGHT IN REACH. IV INFUSING WNL.
[2023-07-01 17:45] VITALS: BP 127/52
--- NOTE | 2023-07-01 18:27 | NUR ---
IN TO ROUND ON PT. PT SEMI-FOWLERS IN BED. EYES CLOSED, RR EVEN AND UNLBAORED. RR OF 18 NOTED. NO NEEDS IDENTIFIED AT THIS TIME. CALL LIGHT IN REACH.
--- NOTE | 2023-07-01 19:10 | NUR ---
SHIFT REPORT RECEIVED FROM ZOHRA MORRISON, PT RESTING QUIETLY, WITHOUT SIGNS OF DISTRESS.
[2023-07-01 20:57] VITALS: BP 138/56
--- NOTE | 2023-07-01 20:57 | NUR ---
VS AND I/O DONE PER DANICA MORRISON AND SOLO HECTOR, REVIEWED AND WNL.
[2023-07-01 21:58] VITALS: BP 139/53
--- NOTE | 2023-07-01 22:00 | NUR ---
PT AWAKEN, BP RECHECKED PRIOR TO ADMINISTRATION OF CARDIAC MEDICATIONS, PT ALERT AND ORIENTENED, RT TYLENOL GIVEN, PT STATES PAIN IS LESS AND NEARLY GONE WHEN SHE LAYS STILL, ASSESSMENT COMPLETED, SCDS IN PLACE, IV PATENT AND INFUSINE WELL WITH LR AT 85ML/HR, SIDE RAILS UP X 4, HOB ELEVATED APPROX 20 DEGREES.
--- NOTE | 2023-07-01 22:20 | NUR ---
ACCUCHECK 174, SS INSULIN 1 UNIT GIVEN SQ, NEW BAG OF LR HUNG PER ORDER. PT RESTING QUIETLY WITHOUT COMPLAINTS.
--- NOTE | 2023-07-02 00:20 | NUR ---
NURSE CALLED TO ROOM, PT DESIRES TO VOID, ASSISTED UP TO BSC, VOIDED 150ML, BACK TO BED, TILTED TO THE RIGHT PER PT REQUEST, PT WITHOUT OTHER COMPLAINTS AT THIS TIME.
--- NOTE | 2023-07-02 02:30 | NUR ---
PT UP TO BSC TO VOID WITH ASSIST WITH ASSIST OF ELECTRONIC NEWS GATHERING EDITOR, NO STOOL REPORTED, VOIDED 325ML, NO STOOL AT THIS TIME, BACK TO BED, RESTING.
--- NOTE | 2023-07-02 04:20 | NUR ---
PT APPEARS TO SLEEP, RESP EVEN AND REG.
[2023-07-02 05:05] VITALS: BP 125/50
--- NOTE | 2023-07-02 05:05 | NUR ---
RN CALLED TO ROOM, PT ASSISTED UP TO BSC TO VOID, 1PA WITH FFW, PT PREFERS TO DO MOST OF TRANSFER HERSELF, PT VOIDED 100ML NOTED APPROX 15ML OF BRIGHT TO DARK RED STRAINS OF BLOOD. PT TOLERATED TRANSFER WELL, PT TO RECLINER PER HER CHOICE, LAB INTO DRAW AM LABS, PT REQUESTING COFFEE, GIVEN PER REQUESTS, CALL LIGHT IN REACH, PT MEDICATED WITH RT TYLENOL PER ORDER.
[2023-07-02 05:24] LABS: HEMATOCRIT 22.8 % (35.0-50.0); HEMOGLOBIN 7.4 g/dL (12.0-18.0); MCH 25.1 (27-36); MCHC 32.3 g/dl (30-36); MCV 77.7 fl (81-99); PLATELET COUNT 426 K/uL (140-440); RBC 2.94 M/ul (4.3-5.7); RDW 25.3 (10.5-15.0)
[2023-07-02 06:12] LABS: BANDS, MANUAL DIFF 3; LYMPHOCYTES, MANUAL DIFF 17; MONOCYTES, MANUAL DIFF 3; NEUTROPHILS, MANUAL DIFF 77
--- NOTE | 2023-07-02 06:30 | NUR ---
PT ASLEEP IN CHAIR, LEANING FORWARD, AWAKEN TO CHECK ON PT, PT AWAKENS EASILY, SITTING IN UP RIGHT POSITION NOW, PT STATES SHE WOULD LIKE TO STAY IN CHAIR TILL AFTER BRECKFAST, PT WITHOUT COMPLAINTS.
--- NOTE | 2023-07-02 07:20 | NUR ---
Pt report received from TAMIKO Patterson. Pt is asleep with eyes closed, up in chair. Breathing is regular, even, and non-labored.
--- NOTE | 2023-07-02 08:00 | NUR ---
ASSISTED PT OUT OF CHAIR TO BSC AND THEN INTO BED SHE WAS FEELING WEAK. TOLERATED WELL AND WAS ABLE TO DO IT MOSTLY ON HER OWN. GIVEN COFFEE AND SAT UP FOR BREAKFAST. CALL LIGHT IN REACH.
--- NOTE | 2023-07-02 08:28 | NUR ---
Patient sitting up in chair. Acu check completed, coffee given. pt has no other requests at this time. call light within reach.
[2023-07-02 09:05] VITALS: BP 130/51
--- NOTE | 2023-07-02 09:30 | NUR ---
While in for pt assessment, pt's IV pump was alarming and pt states that her IV is leaking. She states that a nurse came in and changed the dressing in hopes that the IV could be changed after breakfast. Dressing was removed and I noted that the IV catheter was simply laying on the skin, not in a vessel. Dr. Berry came in shortly after this for pt assessment and advised that as long as she is eating, the IV does not need to be reinserted. Pressure bandage applied to site. Advised pt to watch for s/sx of infection at the iv site. Pt verbalized understanding.
--- NOTE | 2023-07-02 10:59 | NUR ---
ASSISTED PT INTO BATHROOM. URINE ONLY OUT. WAS FAIRLY WEAK BY THE TIME SHE GOT BACK TO CHAIR.
--- NOTE | 2023-07-02 11:32 | NUR ---
In for hourly rounding. Pt is awake, sitting up in chair. Call light in reach. Denies needs at this time. Pt states that she has been using the incentive spirometer. She is agreeable to going for a walk after lunch.
--- NOTE | 2023-07-02 14:00 | NUR ---
Advised by TAMIKO Chu that she and TAMIKO Lam had assisted the pt with ambulating the hallway. Pt stated that she feels pretty "Wiped out" after that and wanted to take a nap.
[2023-07-02 14:06] LABS: BILIRUBIN, URINE NEGATIVE (negative); BLOOD/HGB, URINE NEGATIVE (Negative); KETONE, URINE NEGATIVE (Negative); LEUK ESTERASE, URINE SMALL (negative); NITRITE, URINE NEGATIVE (negative); PH, URINE 6.5 (5-7)
[2023-07-02 14:12] LABS: BACTERIA, URINE NONE SEEN /hpf (negative); EPITHELIAL CELLS, URINE SQUAMOUS 2+ /lpf (0-1+); RED BLOOD CELLS, URINE 0-1 /hpf (0-5); REFLEX CULTURE, URINE No (No)
[2023-07-02 14:30] VITALS: BP 128/50
[2023-07-02 17:38] VITALS: BP 125/52
--- NOTE | 2023-07-02 19:06 | NUR ---
SHIFT REPORT RECEIVED FROM FARAZ MORRISON, PT ASLEEP IN BED, RESP EVEN AND REG.
--- NOTE | 2023-07-02 21:30 | NUR ---
PATIENT CALLED STATED "I NEED TO USE THE COMMODE". 1 PA USING WALKER. PATIENT C/O STOMACH PAIN WHILE SITTING ON THE COMMODE STATED"I NEVER HAD LIKE THIS PAIN AND THIS IS MY FIRST BOWEL MOVEMENT SINCE SURGERY 3 DAYS AGO". PATIENT STAYED/SAT IN THE COMMODE FOR MORE OR LESS 15 MINUTES. V/S, I&O'S OBTAINED AND CHARTED. THIS ORNAMENT MAKER HAND CALLED FOR HELP TO GET PATIENT BACK IN BED. RN CATHERINE CAME. PATIENT'S OUTPUT ON THE BUCKET WAS BLOODY/CLOTTY. PRIMARY RN NOTIFIED.
--- NOTE | 2023-07-02 21:40 | NUR ---
RN CALLED TO ROOM, PT JUST UP TO BSC AND REPORTS VOIDING, PASSED STOOL ALSO, TOTAL URINE WITH STOOL APPEARS BLOODY, DARK MAROON IN COLOR, DIFFICULT TO KNOW HOW MUCH URINE FROM STOOL. PT PAINFUL IN LOWER ABDOMEN AFTER PASSING STOOL, PT BACK TO BED, PLAN TO MONITOR VS AND ASSESS.
[2023-07-02 21:56] VITALS: BP 107/51
--- NOTE | 2023-07-02 22:10 | NUR ---
VS COMPLETED, NOW BP 160/65, HR 73, PT STATES PAIN IN LOWER ABD CRAMPY IN NATURE, WORST THAN ABDOMEN PAIN HAS BEEN PER PT REPORT, ROUTINE TYLENOL GIVEN PER ORDER, PT DECLINES HAVING RN ASK MD FOR OPIATES, STATES SHE DOESN'T WANT ANY OPIATES. PLAN TO UPDATE DR BELLA.
--- NOTE | 2023-07-02 22:15 | NUR ---
TC TO DR BELLA TO REPORT RECTAL BLEEDING AND PAIN IN ABDOMEN, ORDERS RECEIVED FOR AM CBC, STATES ONE ATTEMPT COULD BE MADE TO PLACE SL. PT UPDATED ON PLAN.
--- NOTE | 2023-07-02 22:40 | NUR ---
PT RESTING IN BED, ONE IV ATTEMPT IN RIGHT ARM MADE BY CATHERINE CCU RN, UNSUCESSFUL, VS DONE AT THIS TIME, RT MEDS GIVEN, DISCUSSED PLAN TO MONITOR PAIN AND BLEEDING, ECCYMOTIC BRUISE NOTED IN LOWER ABDOMEN, BRUISED AREA SOFT, ABDOMEN IS SOFT BUT TENDER, ECCYMOTIC AREAS BORDER MARKED WITH PEN, PLAN TO MONITOR.
[2023-07-02 22:41] VITALS: BP 156/61
--- NOTE | 2023-07-02 23:15 | NUR ---
PT ASLEEP, RESP EVEN AND REG.
--- NOTE | 2023-07-03 01:00 | NUR ---
RN CALLED TO ROOM, PT REQUEST ASSIST UP TO BSC TO VOID, PT VOIDED AND PASSED SMALL AMOUNT, APPROX LESS THAN 30ML, STRINGY DARK RED BLOOD, WHEN WIPING RECTUM BRIGHT RED BLOOD ON TISSUE, SMALL AMOUNT. PT STATES SHE IS STILL PAINFUL, STATES SHE WILL NOT TAKE ANY OPIATES ONLY TYLENOL, PT ATTEMPTING TO REST, WARM PAD TO LOWER ABDOMEN PER REQUEST.
--- NOTE | 2023-07-03 01:30 | NUR ---
PT APPEARS TO SLEEP, RESP EVEN AND REG.
--- NOTE | 2023-07-03 02:25 | NUR ---
PT APPEARS TO SLEEP, EYES CLOSED, RESP EVEN AND REG.
--- NOTE | 2023-07-03 02:45 | NUR ---
PT CALLED TO ROOM, REQUEST ASSIST TURNING TO LEFT SIDE, STATES ABDOMEN STILL HURTS BUT WAS ABLE TO SLEEP, PT GRIMACING WITH TURNING, ABDOMEN SOFT, ECCYMOTIC AREA TO LOWER ABD REMAINS SOFT AND MARGINS UNCHANGED. PT TURNED AND PILLOW TO ABD FOR SUPPORT PER PT REQUEST. PT RESTING WITH EYES CLOSED, HEAD OF BED LOWERED PER PT REQUEST.
[2023-07-03 04:46] VITALS: BP 139/56
--- NOTE | 2023-07-03 04:54 | NUR ---
CALLED TO ROOM PER AMANDA HECTOR, PT RECENTLY UP TO BSC, VOIDED AND PASSED BLOODY LIQUID FROM RECTUM, MAROON IN COLOR, BRIGHT RED BLOOD ON TISSUE, PT BACK TO BED, PT APPEARS MORE RELAXED, STATES HER ABDOMEN STILL HURTS BUT ALITTLE LESS, LULU MORRISON INTO ATTEMPT AM BLOOD DRAW WITH 20G IV SO IV ACCESS COULD BE OBTAINED. UNSUCESSFUL ATTEMPT.
[2023-07-03 05:42] LABS: HEMATOCRIT 21.3 % (35.0-50.0); HEMOGLOBIN 6.9 g/dL (12.0-18.0)
[2023-07-03 05:49] LABS: MCH 25.4 (27-36); MCHC 32.4 g/dl (30-36); MCV 78.4 fl (81-99); PLATELET COUNT 414 K/uL (140-440); RBC 2.72 M/ul (4.3-5.7); RDW 25.6 (10.5-15.0)
[2023-07-03 06:03] LABS: BANDS, MANUAL DIFF 2; LYMPHOCYTES, MANUAL DIFF 7; MONOCYTES, MANUAL DIFF 1; NEUTROPHILS, MANUAL DIFF 90
--- NOTE | 2023-07-03 06:17 | NUR ---
Dr Berry notified of pts rectal bleeding. new order to infuse 2 units PRBC's
--- NOTE | 2023-07-03 06:45 | NUR ---
SUPERVISIOR AT BEDSIDE WITH U/S, ATTEMPTING TO PLACE IV, UNSUCESSFUL AT THIS TIME.
--- NOTE | 2023-07-03 07:05 | NUR ---
Pt report received from TAMIKO Howard advised that supervisor asphalt paving Richard is currently checking in to starting a new IV on this pt.
[2023-07-03 09:39] VITALS: BP 134/51
[2023-07-03 10:37] LABS: ABO O; ANTIBODY SCREEN NEGATIVE; IS CROSSMATCH COMPATIBLE; RH POSITIVE
--- NOTE | 2023-07-03 11:17 | NUR ---
AT ABOUT 1045 HRS, THIS RN WAS NOTIFIED THAT THIS PT'S UNITS OF BLOOD WERE READY TO FLOOR ATTENDANT. OBTAINED 1 UNIT OF PRBC FROM THE LAB AFTER CONFIRMING WITH BAGGING MACHINE OPERATOR DEVAN. 2ND RN VERIFICATION PERFORMED AT BEDSIDE WITH RN CHAUNCEY WHITNEY. PT IS RESTING SUPINE IN BED, EYES CLOSED, BUT IS AWAKE. SHE STATES SHE IS VERY TIRED AND WANTS TO REST. ENCOURAGED PT TO NOTIFY THIS RN IF SHE IS EXPERIENCING ANYTHING OUT OF THE ORDINARY BOTH DURING THE FIRST 15 MINUTES OF THE START OF THE TRANSFUSION AND AFTER, SHE VERBALIZED UNDERSTANDING AND AGREED TO ADVISE. DURING FIRST 15 MINUTES AFTER TRANSFUSION STARTED (AFTER PRE VS) AT 1100 HOURS, PT RESTED QUIETLY WITH HER EYES CLOSED. VSS AFTER 15 MINUTES AND RATE OF ADMINISTRATION WAS INCREASED FROM 100ML/HR TO 150ML/HR. CALL LIGHT IN REACH, IV SITE IS PATENT (ASSESSED PRIOR TO PICKING UP THE PRBC, WELL PRIOR TO CONNECTING THE PT TO THE PUMP). PT HAS NO COMPLAINTS AT THIS TIME.
[2023-07-03 14:13] VITALS: BP 126/59
[2023-07-03 17:08] VITALS: BP 148/59
--- NOTE | 2023-07-03 17:25 | NUR ---
PT IS A&O X4, DENIES ANY SYMPTOMS, STATES SHE FEELS LIKE SHE CAN EAT A LITTLE. DINNER TRAY ADJUSTED TO HER LIKING IN FRONT OF HER AND SHE IS HAVING NO TROUBLE EATING SOME SOUP. CALL LIGHT IS IN REACH. VSS.
[2023-07-03 17:56] LABS: BASOPHILS 0.7 % (0-2); HEMATOCRIT 35.6 % (35.0-50.0); HEMOGLOBIN 11.2 g/dL (12.0-18.0); LYMPHOCYTES 10.7 % (24-44); MCHC 31.4 g/dl (30-36); MCV 79.4 fl (81-99); MONOCYTES 3.4 % (0-12); NEUTROPHILS 84.2 % (39-80); PLATELET COUNT 368 K/uL (140-440); RBC 4.49 M/ul (4.3-5.7); RDW 21.8 (10.5-15.0)
--- NOTE | 2023-07-03 19:16 | NUR ---
SHIFT REPORT RECEIVED FROM FARAZ MORRISON, ASSUMING CARE OF PT.
--- NOTE | 2023-07-03 19:20 | NUR ---
PT AWAKE, RESTING IN BED, REQUEST BLANKETS TO BE ADJUSTED, REPORTS FEELING TIRED, STATES SHE TRY TO EAT A LITTLE BUT DOESN'T WANT ANYTHIG ELSE AT THIS TIME. HOB ELEVATED, SIDE RAILS UP.
--- NOTE | 2023-07-03 21:08 | NUR ---
PT AWAKE AND ALERT, PT C/O MID AND LOWER RIGHT ABDOMINAL PAIN, CRAMPY IN NATURE, VS DONE AND STABLE, ABDOMEN SOFT, TENDER RIGHT MID AND LOWER QUADRANT, BRUISE AREA LOWER ABD IS SOFT AND HASN'T INCREASED MARKED BOARDERS. PT ASSISTED UP TO BSC, VOIDED 250ML YELLOW URINE, ONLY SMEAR OF BRIGHT RED BLOOD NOTED FROM RECTUM, BACK TO BED, PT VERY PAINFUL, PT PREFERS NOT TO TAKE OPIATES, RT TYLENOL GIVEN PER ORDER, DISCUSSED RN CAN CALL MD, PT WANTS TO WAIT A BIT LONGER.
[2023-07-03 21:40] VITALS: BP 139/63
--- NOTE | 2023-07-03 21:40 | NUR ---
PT STATES SHE WILL TRY SOMETHING STRONGER FOR PAIN IF MD FEELS IT WOULD BE SAFE FOR HER, PLAN TO CALL MD TO UPDATE.
--- NOTE | 2023-07-03 21:58 | NUR ---
TC TO DR BELLA, REPORTED PT'S PAIN 7/10 IN RIGHT MID AND RIGHT LOWER ABDOMEN, CRAMPY IN NATURE, ALSO PT'S REQUEST FOR ORDER FOR STRONGER PAIN MEDICATION, ORDERS RECEIVED FOR DILAUDID 0.3MG Q1 PRN PAIN. UPDATED MD ONLY SMEAR OF BLOOD NOTED WITH LAST VOID.
--- NOTE | 2023-07-03 22:10 | NUR ---
RN TO ROOM, PT MEDICATED WITH DILAUDID 0.3MG IV FOR ABDOMINAL PAIN 01/16, RIGHT HAND SL INTACT, FLUSHES WELL. PT GIVEN RT MEDICATIONS WITH SIPS OF WATER, PT FEELING A LITTLE LIGHT HEADED AFTER PAIN MEDICATIONS, HOB LOWERED TO APPROX 30 DEGREES, WARM BLANKET GIVEN, PT RESTING WITH EYES CLOSED.
--- NOTE | 2023-07-03 23:00 | NUR ---
PT ASLEEP, RESP EVEN AND REG, WITHOUT DISTRESS.
--- NOTE | 2023-07-04 00:40 | NUR ---
PT RESTING QUIETLY, RESP EVEN AND REG, AWAKENS BRIEFLY STATES SHE IS FEELING BETTER AND GOING TO SLEEP.
--- NOTE | 2023-07-04 02:11 | NUR ---
PT ASSISTED UP TO BSC, VOIDED 200ML YELLOW URINE, HAD SMALL STRINGY DARK RED STOOL FROM RECTUM, PT BACK TO BED, STATES LESS THEN BEFORE BUT FEELS LIKE "ITS STARTING UP AGAIN", PT OFFERED PAIN MED AND AGREES, PT MED WITH DILAUDID 0.3MG SLOW IV PUSH PER RIGHT HAND SF, SITE INTACT, PT RESTING WITH EYES CLOSED, WITHOUT OTHER REQUESTS.
--- NOTE | 2023-07-04 04:00 | NUR ---
PT APPEARS TO SLEEP, RESP EVEN AND REG.
[2023-07-04 05:50] LABS: BASOPHILS 0.3 % (0-2); EOSINOPHILS 1.2 % (0-6); HEMATOCRIT 33.5 % (35.0-50.0); HEMOGLOBIN 10.8 g/dL (12.0-18.0); LYMPHOCYTES 7.4 % (24-44); MCH 25.4 (27-36); MCHC 32.2 g/dl (30-36); MCV 78.9 fl (81-99); MONOCYTES 2.6 % (0-12); NEUTROPHILS 88.5 % (39-80); PLATELET COUNT 384 K/uL (140-440); RBC 4.25 M/ul (4.3-5.7); RDW 21.6 (10.5-15.0)
[2023-07-04 06:07] LABS: ALBUMIN 1.9 g/dL (3.4-5.0); ALBUMIN/GLOBULIN RATIO 0.54 (1.1-2.4); ANION GAP 12.6 (7-21); BILIRUBIN, TOTAL 0.5 ng/dL (0.2-1.0); BUN/CREATININE RATIO 11.36 (6.0-28.6); CALCIUM 7.9 mg/dL (8.5-10.1); CREATININE, SERUM 0.88 mg/dL (0.55-1.02); POTASSIUM 3.6 mmol/L (3.5-5.1); PROTEIN, TOTAL 5.4 g/dL (6.4-8.2)
[2023-07-04 06:10] VITALS: BP 147/56
--- NOTE | 2023-07-04 06:10 | NUR ---
PT AWAKE AND ALERT, VS STABLE, AFEBRILE, LAB RECENTLY IN FOR LAB DRAW, PT DENIES NEED FOR STRONGER PAIN MED OTHER THAN SCHEDULED TYLENOL, GIVEN PER ORDER FOR PAIN 07/19, NO REQUEST TO GET UP TO VOID, LAST VOID APPROX 0145, PLAN TO MONITOR, PT ATTEMPTING TO DRINK MORE WATER BEFORE BREAKFAST, LEFT AC SL NOTED SOME SWELLING AT SITE, UNABLE TO DRAW BACK OR FLUSH, SL D'WIN INTACT, MINIMAL BLEEDING, ROBERT AND COBAN TO SITE.
--- NOTE | 2023-07-04 08:07 | NUR ---
RECIEVED REPORT AT 0730 FROM NURSE. PT WAS AWAKE A+O AND ALSO TOOK PART IN MORNING REPORT. CURRENTLY PT IS SEMIFOWLER IN BED. REQUESTED COFFEE AND IS NOW EATING BREAKFAST. PT MEDS AND ASSESSMENT COMPLETE. NO ABNORMAL FINDINGS FROM PREVIOUS ASSESSMENT. PT VITALS ARE STABLE BASED ON BASE LINE. NO OTHER CARES REQUESTED OR NEEDED AT THIS TYIME. CALL LIGHT WITHIN REACH
[2023-07-04 10:00] VITALS: BP 136/58
--- NOTE | 2023-07-04 10:18 | NUR ---
SPOKE TO PATIENT ABOUT THE DC PLAN . PATIENT PLANS TO GO HOME WITH HER DAUGHTER WHEN MEDICALLY STABLE. PATIENT IS WORRIED ABOUT BEING ALONE WHEN HER DAUGHTER IS AT WORK AND STATES SHE DID GO TO [place] [employer] IN THE [place]ST. PATIENT DOES NOT WANT TO GO TO [employer] AT THIS TIME. PATIENT WILL DISCUSS FUTURE POSSIBLE PLACEMENT WITH THE PATIENT'S DAUGHHTER. PATIENT DOES NOT WANT SHIP MATE TO ARRAGE PLACEMENT.
--- NOTE | 2023-07-04 10:19 | NUR ---
TAWNY BANDA TOLD ME ABOUT PT BLOODY STOOL. WENT TO ASSESS AND SAW A FAIR AMOUNT OF BLOODY STOOL IN DIAPER. TOOK 2 PHOTOS TO PUT ON FILE. WHEN GETTING BACK TO THE FLOOR I SAW THAT DR BELLA WAS AT HIS CUBICLE. WENT AND SHOWED DOCTOR THE PICTURES. DR SAID THANK YOU. PICTURES WILL BE FILED IN CHART.
--- NOTE | 2023-07-04 11:00 | NUR ---
MS ROUNDS. PT APPEARED TO BE SLEEPING, DID NOT DISTURB. PROVIDED PRAYER.
[2023-07-04 13:14] VITALS: BP 130/50
--- NOTE | 2023-07-04 13:15 | NUR ---
PT IS CURRENTLY ASLEEP WITH EVEN AND UNLABORED BREATHING.
--- NOTE | 2023-07-04 16:37 | NUR ---
PT IS CURRENTLY IN BED LAYING DOWN AND VISITING WITH FAMILY. DILAUDID GIVEN UPON REQUEST. NO OTHER CARES REQUESTED OR NEEDED AT THIS TIME CALL LIGHT WITHIN REACH
[2023-07-04 17:47] VITALS: BP 142/59
--- NOTE | 2023-07-04 19:15 | NUR ---
REPORT RECIEVED FROM GURU MORRISON. BOARD UPDATED. pt RESTING IN BED. CALL LIGHT WITHIN REACH. NO OTHER NEEDS AT THIS TIME
--- NOTE | 2023-07-04 20:10 | NUR ---
CALL PLACED TO DR. BELLA TO CLARIFY ORDER FOR IVF. DR. BELLA CLARIFIED pt COULD BE SL AND COULD BE PLACED ON CLEAR LIQUID DIET WITH ENSURES. ORDERS REPEATED BACK. ORDERS UPDATED IN SEP.
[2023-07-04 21:38] VITALS: BP 150/68
--- NOTE | 2023-07-04 21:45 | NUR ---
ASSESSMENT AND VITAL SIGNS DONE. SCHEDULED MEDICATION ADMINISTERED, SEE MAR. BLOOD SUGAR CHECKED. NO SS INSULIN. IV ASSESSED, WNL. CALL LIGHT WITHIN REACH. NO OTHER NEEDS AT THIS TIME.
--- NOTE | 2023-07-04 23:51 | NUR ---
pt IN BED RESTING. RR EVEN AND UNLABORED. CALL LIGHT WITHIN REACH.
--- NOTE | 2023-07-05 00:16 | NUR ---
call light answered, pt up 1pa with fww to bsc for void. pt voided 225mls light yellow urine, no bm/blood noted with dangelo care. pt back in bed, call light ans personal belongings in reach. no additional needs or concerns verbalized when asked.
--- NOTE | 2023-07-05 02:47 | NUR ---
pt RESTING IN BED WITH EYES CLOSED. RR EVEN AND UNLABORED. CALL LIGHT WITHIN REACH.
--- NOTE | 2023-07-05 02:52 | NUR ---
PATIENT CALLED TO USE THE BEDSIDE COMMODE. 1 PA USING WALKER. SAT FOR 10MINS APPROXIMATELY PER PATIENT WHICH STATED "FEELS LIKE I'M HAVING A BOWEL MOVEMENT". THERE WAS A SMEAR OF RED BLOOD UPON WIPING. PATIENT VOIDED 300ML YELLOW URINE. PATIENT IS BACK IN BED. NO OTHER NEEDS AT THIS TIME.
--- NOTE | 2023-07-05 04:33 | NUR ---
pt IN BED
--- NOTE | 2023-07-05 05:50 | NUR ---
pt SLEPT WELL DURING THE NIGHT. VSS ON RA. CALL APPROPRIATLY 1PA WITH FWW TO [facility]. NO BM THIS SHIFT. BUT SMALL AMOUNT OF BLOOD SMEAR WITH MARY CARE. BOWEL TONES ACTIVE BUT QUITE. CLEAR LIQUID DIET pt TOLERATEING WELL. MIDLINE INCISION COVERED DRESSING D/I WITH 3X LAP SITES. PAIN WELL CONTROLED WITH SCHEDULED PO PAIN MEDS.
[2023-07-05 06:11] VITALS: BP 139/58
--- NOTE | 2023-07-05 06:20 | NUR ---
pt UP BSC. pt HAD 50 MLS MAROON COLORED BM. THIS RN TOLD pt TO NOT DRINK ANY MORE FLUIDS UNTIL MD IS NOTIFIED AND FURTHER INSTRUCTIONS IS PROVIDED. pt VERBALIZED UNDERSTANDING. CALLED MADE TO [facility] NO ANSWER. VOICE MAIL LEFT.
--- NOTE | 2023-07-05 06:36 | NUR ---
scheduled tyelnol given along with scheduled carafate via suspension, dentures placed in denture cup w/ cleaning tablet and pt brushed teeth. no additional needs or concerns verbalized, call light in reach.
--- NOTE | 2023-07-05 07:29 | NUR ---
DR BELLA MADE AWARE OF LIQUID GEL LIKE CONSISTENCY MID TO DARK RED BM THIS AM (APPROX 50MLS IN VOLUME). TELEPHONE ORDER READ BACK TO START LR AT 85MLS/HR CONTINUOUSLY, CHANGE DIET TO NPO, AND CAN DC CURRENT ORDER OF PEPCID pt IS ALSO ON PROTONIX. ORDERS READ BACK TO CONFIRM, PRIMARY TAMIKO DUNAWAY MADE AWARE AND UPDATED.
[2023-07-05 09:04] VITALS: BP 134/55
--- NOTE | 2023-07-05 09:30 | NUR ---
QIANA from Dr. Asif to order a CBC and ok to give scheduled po medication with small sip of water.
--- NOTE | 2023-07-05 10:06 | NUR ---
Patient's IV infiltrated. TAMIKO Gan at bedside attempting to place US guided IV.
[2023-07-05 10:12] LABS: RBC, LEUKOREDUCED 20212312146300P; RBC, LEUKOREDUCED 20212312243400J
[2023-07-05 10:35] LABS: BASOPHILS 0.4 % (0-2); EOSINOPHILS 0.4 % (0-6); HEMATOCRIT 33.3 % (35.0-50.0); HEMOGLOBIN 10.6 g/dL (12.0-18.0); MCH 25.3 (27-36); MCHC 31.8 g/dl (30-36); MCV 79.6 fl (81-99); MONOCYTES 4.4 % (0-12); NEUTROPHILS 85.8 % (39-80); PLATELET COUNT 415 K/uL (140-440); RBC 4.18 M/ul (4.3-5.7); RDW 21.9 (10.5-15.0)
--- NOTE | 2023-07-05 10:48 | NUR ---
ENTERED THE ROOM TO DISCUSS THE DC PLAN. PATIENT WAS HAVING A PROCEDURE. THE FLOOR COVERER WILL RETURN TO VISIT WITH THE PATIENT LATER TODAY.
--- NOTE | 2023-07-05 11:07 | NUR ---
MS GARCES. 30 MINUTES. PROVIDED CONVERSATION WITH PT WHILE TAMIKO PARK WORKED ON STARTING IV. FACILITATED STORY-TELLING. NORMALIZED PT EXPERIENCE. PROVIDED SUPPORTIVE PRESENCE. PROVIDED PRAYER.
--- NOTE | 2023-07-05 11:49 | NUR ---
Dr. Asif in to see patient.
--- NOTE | 2023-07-05 12:53 | NUR ---
Patient up to bedside commode to void. 150ml clear yellow urine noted. No notable rectal bleeding.
[2023-07-05 13:30] VITALS: BP 144/64
--- NOTE | 2023-07-05 15:03 | NUR ---
Scheduled tylenol admin at this time. Patient reports she is feeling well this afternoon, pain level 1/10 at this time. Abdominal dressing unchanged, scant dried spots noted. Patient denies nausea.
[2023-07-05 18:18] VITALS: BP 137/56
--- NOTE | 2023-07-05 19:15 | NUR ---
pt RESTING IN THE BED. BOARD UPDATED. CALL LIGHT WITHIN REACH. pt IN NO OBVIOUS DISTRESS.
[2023-07-05 20:04] VITALS: BP 138/56
--- NOTE | 2023-07-05 20:05 | NUR ---
vs and i&o's collected and given to primary rn magda. sf snack provided per pt request, call light in reach.
--- NOTE | 2023-07-05 20:10 | NUR ---
ASSESSMENT AND VITAL SIGNS DONE. ACCU CHECK DONE. SS INSULIN ADMINISTERED. SCHEDULED MEDS ADMINISTERED, SEE MAR. pt REQUESTING SNACK FOR BED TIME. pt DENIES ANY NEEDS AT THIS TIME. pt REPOSITIONED IN BED. CALL LIGHT WITHIN REACH. NO OTHER NEEDS AT THIS TIME.
--- NOTE | 2023-07-05 21:08 | NUR ---
PATIENT ASSISTED TO THE BSC A 1PA W/FWW. PATIENT ABLE TO VOID. PATIENT HAD A SMALL SOFT BM AND NOTED TO BE DARK MAROON IN COLOR. PATIENT IS BACK IN BED RESTIGN. PATIENT DENIES ANY FURTHER NEEDS. WARM BLANKET PROVIDED. CALL LIGHT AND BELONGINGS ARE WITHIN REACH.
--- NOTE | 2023-07-05 23:45 | NUR ---
pt RESTING IN THE BED. NO S/SX OF OBVIOUS DISTRESS. RR EVEN AND UNLABORED. CALL LIGHT WITHIN REACH.
[2023-07-06 01:48] VITALS: BP 134/62
--- NOTE | 2023-07-06 02:25 | NUR ---
ASSESSMENT DONE. pt RESITNG IN BED. pt DENIES ANY NEEDS AT THIS TIME. RR EVEN AND UNLABORED. CALL LIGHT WITHIN REACH.
--- NOTE | 2023-07-06 04:17 | NUR ---
pt RESTING IN BED. RR EVEN AND UNLABORED. NO S/SX OF OBVIOUS DISTRESS. NO NEEDS AT THIS TIME. CALL LIGHT WITHIN REACH.
[2023-07-06 05:28] VITALS: BP 146/54
[2023-07-06 05:33] LABS: BASOPHILS 0.5 % (0-2); EOSINOPHILS 1.6 % (0-6); HEMOGLOBIN 10.8 g/dL (12.0-18.0); LYMPHOCYTES 10.6 % (24-44); MCH 26.2 (27-36); MCHC 32.8 g/dl (30-36); MCV 79.8 fl (81-99); MONOCYTES 5.6 % (0-12); NEUTROPHILS 81.7 % (39-80); PLATELET COUNT 408 K/uL (140-440); RBC 4.14 M/ul (4.3-5.7); RDW 21.7 (10.5-15.0)
--- NOTE | 2023-07-06 06:45 | NUR ---
UPDATED DR. BELLA ABOUT pt SM DARK RED BM. STATES HE EXPECTS THIS, MD AWARE OF AM H&H RESULTS. NO NEW ORDERS RECIEVED.
[2023-07-06 07:37] VITALS: BP 129/56
--- NOTE | 2023-07-06 09:01 | NUR ---
Patient sitting up in bed eating breakfast, no distress. Patient denies having pain this morning. Abdomen soft, dressing unchanged/CDI. Patient denies needs at this time, call light within reach.
--- NOTE | 2023-07-06 10:05 | NUR ---
PATIENT IS SLEEPING AT THIS TIME. PATIENT TOLD KAREEM RODRIGUEZ THAT SHE MAY NEED TO GO TO A LONG TERM AND [facility] WOULD BE THE PATIENT'S CHOICE. REFERRAL SENT TO [facility]. [facility] LATER TO DISCUSS PATIENT'S DC PLAN.
--- NOTE | 2023-07-06 10:43 | NUR ---
Assisted pt from bedside commode to chair. Pt continues to have maroon colored BM's. Pt in chair with chair alarm and call light within reach. Denies any other needs att.
--- NOTE | 2023-07-06 11:22 | NUR ---
SPOKE TO PATIENT ABOUT THE DISCHARGE PLAN. THE PATIENT STATES HER DAUGHTER CAN NOT TAKE CARE OF HER POST-OP AND FEELS LIKE [facility] WOULD BE THE BEST CHOICE SNF SINCE SHE STAYED WITH THEM ONCE BEFORE. CASE MANAGEMENT SENT A REFERRAL.
--- NOTE | 2023-07-06 11:39 | NUR ---
CLARIFIED PATIENTS MULTIPLE FOOD ALLERGIES WITH HER. ENTERED THEM INTO [employer] SEVERAL WERE NOT IN [employer] ON ADMISSION. THESE ALLERGIES ARE ENTERED INTO THE [employer] IN THE KITCHEN. PATIENT HAS SOME MISSING TEETH, SHE NEEDS SOFT VEGGIES. WE ARE SENDING ENSURE MAX PROTEIN WITH MEALS. CURRENT DIET IS 60 GM CONSISTENT CARB.
--- NOTE | 2023-07-06 12:31 | NUR ---
[facility] CALLED FOR BED STATUS AND MESSAGE LEFT FOR AMITTING TO CALL CASE MANAGMENT.
--- NOTE | 2023-07-06 14:00 | NUR ---
THERE ARE NO BEDS AVAILABLE AT [facility] UNTIL NEXT WED. PATIENT UP DATED. PATTERN KEEPER WILL CALL AROUND TO FIND PLACEMENT,
--- NOTE | 2023-07-06 14:04 | NUR ---
MS ROUNDS. PT APPEARED TO BE SLEEPING. DID NOT DISTURB. PROVIDED SILENT PRAYER.
[2023-07-06 14:30] VITALS: BP 132/54
--- NOTE | 2023-07-06 14:30 | NUR ---
Patient declined to take her scheduled tylenol. Patienet educated regarding carafate and tylenol scheduled times. Patient reports she has to have the carafate an hour prior to every dose of tylenol. Explained to patient that carafate is scheduled ACHS while the tylenol is every 8hrs. Patient wants to take a nap at this time and take her tylenol at the next scheduled time. Pain level 0/10.
--- NOTE | 2023-07-06 15:07 | NUR ---
UR NOTE MCG BOWEL SURGERY: COLECTOMY, WITH OR WITHOUT OSTOMY BY LAPAROSCOPY (ISC) 06/30/23 MET GL DAY 2 07/02/23 MET GL DAY 3 07/04/23 VARIANCE GL DAY 4
--- NOTE | 2023-07-06 15:45 | NUR ---
Patient doing well this afternoon, no notable distress. Patient reports tolerable pain, no nausea. Patient got up to void with emt/dispatcher assist, per emt/dispatcher report patient had a very small dark blood clot pass from rectum. Patient has not had any notable leah red blood from rectum this shift.
[2023-07-06 18:34] VITALS: BP 119/52
--- NOTE | 2023-07-06 19:10 | NUR ---
BOARD UPDATED. pt SITTING UP IN BED. pt STATES SHE IS FEELING LIKE SHE HAS A GAS BUBBLE. pt REPOSTIONED AND MADE MORE COMFORTABLE. CALL LIGHT WITHIN REACH.
[2023-07-06 20:18] VITALS: BP 139/54
--- NOTE | 2023-07-06 20:45 | NUR ---
in to assist pt off bsc, 1PA domenicowsamm bm of small size remains noted, accu-check completed for RN, no further needs at this time
--- NOTE | 2023-07-06 21:00 | NUR ---
ASSESSMENT AND VITAL SIGNS DONE. BG CHECKED 224, SS INSULIN ADMINISTERED, SEE MAR. SCHEDULED MEDICATION ADMINISTERED, SEE MAR. MIDLINE INCISION WITH ACTICOTE INTACT, WITH SCANT AMOUNT OF DRAINAGE. STERI STIPS INTACT. NO NEW DRAINAGE NOTED. BOWEL TONES ACTIVE. LUNG SOUNDS CLEAR. pt C/O 7/10 GAS PAIN. SCHEDULED TYLENOL ADMINISTERED, SEE MAR. pt DENIES ANY OTHER NEEDS AT THIS TIME. CALL LIGHT IN REACH.
--- NOTE | 2023-07-06 23:54 | NUR ---
pt RESTING IN THE WITH EYES CLOSED. RR EVEN AND UNLABORED. NO S/SX OF OBVIOUS DISTRESS. CALL LIGHT WITHIN REACH.
--- NOTE | 2023-07-06 23:56 | NUR ---
pt RESTING IN BED WITH EYES CLOSED. RR EVEN AND UNLABORED. NO S/SX OF OBVIOUS DISTRESS. CALL LIGHT WITHIN REACH.
--- NOTE | 2023-07-07 01:12 | NUR ---
in to assist pt up to the bsc, 1pa fww, void, back in bed with no further needs at this time
--- NOTE | 2023-07-07 02:15 | NUR ---
pt RESTING IN THE BED WITH EYES CLOSED. PURE WICK IN PLACE. RR EVEN AND UNLABORED. CALL LIGHT WITHIN REACH.
--- NOTE | 2023-07-07 02:19 | NUR ---
pt RESTING IN BED WITH EYES CLOSED. RR EVEN AND UNLABORED. NO S/SX OF OBVIOUS DISTRESS. CALL LIGHT IN REACH.
--- NOTE | 2023-07-07 04:27 | NUR ---
pt RESTING IN THE BED WITH EYES CLOSED. RR EVEN AND UNLABORED. NO S/SX OF OBVIOUS DISTRESS. CALL LIGHT WITHIN REACH.
[2023-07-07 04:42] VITALS: BP 148/63
--- NOTE | 2023-07-07 04:52 | NUR ---
VS AND I&O COMPLETED. PT REPORTS 4/10 PAIN DESCRIBED "GAS BUBBLES" . DENIES NEED FOR PAIN MEDICATION. PT DENIES OTHER NEEDS AT THIS TIME. CALL LIGHT IN REACH.
--- NOTE | 2023-07-07 05:30 | NUR ---
ASSESSMENT DONE. BOWEL TONE ACTIVE. ACTICOTE IN PLACE, D/I, SCANT AMOUNT OF DRAINAGE. LAP SITES X3, NO NEW DRAINAGE. CALL LIGHT IN REACH. NO OTHER NEEDS AT THIS TIME.
--- NOTE | 2023-07-07 06:02 | NUR ---
SCHEDULED MEDS ADMINISTERED. pt SITTING UP IN THE BED. CALL LIGHT WITHIN IN REACH.
[2023-07-07 06:11] LABS: HEMATOCRIT 32.3 % (35.0-50.0); HEMOGLOBIN 10.5 g/dL (12.0-18.0); MCH 26.1 (27-36); MCHC 32.5 g/dl (30-36); MCV 80.1 fl (81-99); PLATELET COUNT 442 K/uL (140-440); RBC 4.03 M/ul (4.3-5.7)
[2023-07-07 06:39] LABS: EOSINOPHILS, MANUAL DIFF 6; LYMPHOCYTES, MANUAL DIFF 11; MONOCYTES, MANUAL DIFF 8; NEUTROPHILS, MANUAL DIFF 75
--- NOTE | 2023-07-07 07:01 | NUR ---
C/O ABD PAIN, MEDICATED WITH TYLENOL 1000MG /10 PAIN. COOPERATIVE, AWAKE,
--- NOTE | 2023-07-07 07:25 | NUR ---
RECEIVED REPORT FROM TAMIKO WASHINGTON. ASSUMING CARE OF PT WITH TAMIKO DUNAWAY.
--- NOTE | 2023-07-07 07:47 | NUR ---
MESSAGE LEFT FOR [facility] ADMITTING [place] [facility] TO SEE IF [facility] HAS HAD TIME TO REVIEW THE REFERRAL FOR POSS.PLACEMENT. PATIENT'S 1ST CHOICE IS [facility] AND THERE IS NOT A BED AVAILABLE UNTIL MON. THIS NEXT WEEK. ALSO A REFERRAL WAS SENT TO [place] AT THE [facility].
--- NOTE | 2023-07-07 08:56 | NUR ---
PT AWAKE AND ALERT IN BED THIS MORNING. PT CONTINUES TO HAVE WEAKNESS IN R SIDE WELL RIGHT FACIAL DROOP D/T HX OF STROKE. PT HAS FWW FROM HOME IN ROOM, AMBULATES VIA X1 PERSON ASSIST AND FWW TO THE [facility]. GENERALIZED EDEMA PRESENT IN RIGHT ARM AND HAND. LAPOROSCOPIC SITES C/D/I, STERI STRIPS REMAIN ON RLQ LAP SITE, D/I. MIDLINE COVERED WITH SURGICAL DRESSING, SCANT AMOUNT OF BROWN DRAINAGE PRESENT. PT DENIES PAIN OR NAUSEA AT THIS TIME. DR. BELLA TO THE BEDSIDE. PT STATES NO FURTHER NEEDS AT THIS TIME, CALL LIGHT WITHIN REACH, BED RAILS UP.
--- NOTE | 2023-07-07 09:43 | NUR ---
TAMIKO DUNAWAY INDICATED PT HAD REQUESTED VISIT. 30 MINUTES. PT REQUESTED SPIRITUAL GUIDANCE. PROVIDED THEOLOGICAL EDUCATION; PROVIDED HOSPITALITY; FACILITATED STORY-TELLING. PT UTILITZED SPIRITUAL RESOURCES; PROCESSED EMOTIONS; EXPRESSED GRATITUDE.
--- NOTE | 2023-07-07 10:19 | NUR ---
RESTING IN BED WITH EYES CLOSED, BREATHING EVEN AND UNLABORED, RR 14.
--- NOTE | 2023-07-07 10:27 | OR ---
[facility] [address], [place] [address] Signed DATE OF OPERATION: 06/29/2023 SURGEON: Mitchell Bella MD PREOPERATIVE DIAGNOSIS: Adenocarcinoma of cecal tumor. POSTOPERATIVE DIAGNOSIS: Adenocarcinoma of cecal tumor. PROCEDURE: Laparoscopic right colectomy with extra-abdominal [id number] ileotransverse colostomy (stapled). ANESTHESIA: General endotracheal, Mike Garrett SCIENTIFIC DATABASE CURATOR and local 10 mL of 0.25% Marcaine with epinephrine. INDICATION: This 88-year-old white woman is a patient of Dr. Bethany Young. She was found to have rather significant anemia requiring 3 units of blood transfusion. She has numerous medical problems including diabetes type 2, hypertension, hyperlipidemia, chronic kidney disease, and moderate asthma. 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 She underwent a CT scan of the abdomen and pelvis on June 07, 2023, showing a lobulated wall thickening of the ascending colon measuring 6.5 cm in length, the pericolonic stranding suggesting of primary colonic tumor. Three units of blood had been transfused under the direction of Dr. Young. A prompt referral was undertaken and colonoscopy performed by me on June 15, 2023. This showed a neoplasm of the ascending colon. The area was well marked with endoscopic tattoo dye. Additionally, a tubular adenoma not far from this was noted with focal high-grade dysplasia. A transverse colonic polyp was noted to be benign. Preoperative CEA level was found to be normal. She has been admitted at this time to undergo right colectomy, possibly with laparoscopic approach. She understands as does her daughter the risk of bleeding, infection, anastomotic failure, need for other indicated procedures and so on. Understanding this, they wished to proceed. Electronically Signed By: MITCHELL BELLA MD 07/07/23 1027 PATIENT NAME: BRYAN RODRIGUEZ OPERATIVE REPORT DATE OF : 39 REPORT #: [id number] PHYSICIAN: MITCHELL BELLA MD PCP: BETHANY YOUNG MD REPORT IS CONFIDENTIAL AND NOT TO BE RELEASED WITHOUT AUTHORIZATION [facility] [address], [place] [address] Signed FINDINGS: Endoscopic tattoo dye was well demonstrated near the lesion itself. Lesion itself was quite bulky, far more so than I expected. Omental adhesions were attached to it. On that basis, right colectomy was performed with partial resection of omentum in continuity with the tumor. A wide resection of the mesentery was accomplished. There was no evidence of carcinomatosis, hepatic abnormality, or other problem. An extracorporeal aizr-xa-qsic functional end-to-end ileotransverse colostomy was performed as well. The mesenteric defect was reapproximated. DESCRIPTION OF PROCEDURE: The patient was brought to the operating room, given a general endotracheal anesthetic. A Ventura catheter was placed. A full bowel prep had been completed. This included oral antibiotics and preoperative IV antibiotics. A Ventura catheter was placed. The abdomen was prepared with a chlorhexidine solution and draped sterilely. An infraumbilical incision was made and using an open Lamont cannula technique, the abdomen was entered. Notably, the lesion was a palpable one of the right lower abdomen. Intra-abdominal inspection showed no sign of ascites or carcinomatosis after pneumoperitoneum was achieved to a level of 14 mmHg of carbon dioxide gas. An epigastric 12 mm port was placed as well as two 5 mm ports in the right lower quadrant and left lower quadrant. With two-hand manipulation, the small bowel was retracted to the left side of the abdomen. The cecum was elevated and the peritoneal attachment laterally was freed with blunt and electrocautery dissection. The endoscopic tattoo dye was easily identified. Progressive lateral to medial mobilization of the right colon was undertaken. The table was in a Trendelenburg position for this maneuver. Once hepatic flexure was visualized for mobilization, the table was placed into a reverse Trendelenburg position, also [id number]. This allowed for freeing of the hepatic flexure from its retroperitoneal attachments. Gerota's fascia of the kidney could be identified and the duodenum was identified as well. Continuous dissection was undertaken. It was deemed advisable to resect a portion of the right omentum in continuity with the right colonic lesion given the omental adhesions to the lesion itself. The omentum was divided with a stapling device and electrocautery and blunt dissection. The table was variously turned in reverse Trendelenburg and to Trendelenburg to accomplish optimal dissection. The ileum was freed from its lateral attachments and the ureter could be identified in the right lower quadrant well out of harm's way. The mesentery of the right colon was scored with electrocautery and on tension the ileocolic vascular arcade was easily identified. This was dissected free and a window created to secure the ileocolic major vascular trunk with an Endo EBONY stapling device. There was good hemostasis noted. Remaining mesentery up to the mid transverse colon was incised with electrocautery and serially divided primarily with electrocautery dissection. Electronically Signed By: MITCHELL BELLA MD 07/07/23 1027 PATIENT NAME: BRYAN RODRIGUEZ OPERATIVE REPORT DATE OF : 39 REPORT #: [id number] PHYSICIAN: MITCHELL BELLA MD PCP: BETHANY YOUNG MD REPORT IS CONFIDENTIAL AND NOT TO BE RELEASED WITHOUT AUTHORIZATION [facility] [address], [place] [address] Signed Using an Endo EBONY stapling device, the terminal ileum was transected approximately 6 cm from the ileocecal valve. Similar transection of the right mid transverse colon also undertaken. The specimen was thus completely freed. The retroperitoneum was evaluated and found to be hemostatic . A grasping device was used to secure the end of the terminal ileum as well as the mid transverse colon. Pneumoperitoneum was relieved and the infraumbilical incision was incised further and a wound protector placed. Withdrawal of the specimen through the site was not forthcoming due to its bulky size and on that basis, wound protector was removed. Incision enlarged inferiorly a bit. Wound protector reapplied and then with various manipulations, the specimen could be withdrawn completely from the abdomen. Photographs were taken. At this point, the ileum and transverse colon lay in good anatomic position for anastomosis. An extracorporeal anastomosis was deemed most advisable. 3-0 silk sutures were used to secure the small bowel to the right transverse colon alongside each other on the antimesenteric portion. The staple lines were oversewn partially with interrupted 3-0 silk and the corners of the staple transected allowing application of 80 mm EBONY stapling device, each end was individually placed in the ileum and the transverse colon and anastomosis accomplished in a [id number] configuration. Good hemostasis was noted. The enterotomy was closed with interrupted 3-0 Vicryl and subsequently interrupted 3-0 silk suture. Good hemostasis was noted and complete closure afforded. The mesentery was reapproximated with running 3-0 silk suture. The completed anastomosis was noted for its patency and returned to the abdominal cavity. The infraumbilical fascial incision was reapproximated partially with running 0 PDS suture and the Lamont cannula replaced into the site. Pneumoperitoneum was reestablished and intra-abdominal inspection undertaken. Irrigation was undertaken. Excess irrigation fluid was suctioned free. There was no sign of bleeding or other problem. The trocars removed under direct visualization showing no sign of bleeding. The infraumbilical incision was then completed in its closure with the 0 PDS suture. An additional 0 PDS was used to secure the epigastric 12 mm port site due to her thin body habitus and although unlikely for herniation, certainly a possibility. Irrigation was undertaken and 10 mL of 0.25% Marcaine with epinephrine was injected locally. The skin was then closed with interrupted 3-0 Vicryl or running subcuticular 3-0 Vicryl as appropriate. Steri-Strips were applied as was an Acticoat dressing. Sponge, needle, and instrument counts were reported as correct x3. Blood loss was estimated at less than 25 mL. The patient was ultimately extubated and transferred to the recovery room in good condition having suffered no known complications. Sponge, Electronically Signed By: MITCHELL BELLA MD 07/07/23 1027 PATIENT NAME: BRYAN RODRIGUEZ OPERATIVE REPORT DATE OF : 39 REPORT #: [id number] PHYSICIAN: MITCHELL BELLA MD PCP: BETHANY YOUNG MD REPORT IS CONFIDENTIAL AND NOT TO BE RELEASED WITHOUT AUTHORIZATION [address] [address] Signed needle, and instrument counts were reported as correct x3. MD MAKAYLA Feliciano/MODL /[id number] cc: Bethany Young MD Copies: BETHANY YOUNG MD ~ Electronically Signed By: MITCHELL BELLA MD 07/07/23 1027 PATIENT NAME: BRYAN RODRIGUEZ OPERATIVE REPORT DATE OF : 39 REPORT #: [id number] PHYSICIAN: MITCHELL BELLA MD PCP: BETHANY YOUNG MD REPORT IS CONFIDENTIAL AND NOT TO BE RELEASED WITHOUT AUTHORIZATION
--- NOTE | 2023-07-07 11:16 | NUR ---
PT UP TO BSC AND BACK TO BED WITH X1 PERSON ASSIST AND FWW. PT HAS SCANT BROWN SMEAR WHEN WIPING. PT STATES NO FURTHER NEEDS AT THIS TIME, CALL LIGHT WITHIN REACH, BED RAILS UP.
--- NOTE | 2023-07-07 11:22 | NUR ---
SPOKE TO PATIENT AND DAUGHTER ABOUT THE DISCHARGE PLAN. [facility] HAS A BED FOR PATIENT ON Monday07-11-23. PATIENT STILL WANTS A BED AT [facility]. [facility] CALLED TO SEE IF BED STATUS HAS CHANGED AND THE ANSWER WAS NO.FAMILY DOES UNDERSTAND AND WILL GO TO [facility] IN [place]. IF A BED COMES OPEN AT [facility] PATIENT'S FAMILY WOULD LIKE THE CHANGE TO BE MADE.
--- NOTE | 2023-07-07 11:58 | NUR ---
[facility] MOLD[facility] MACHINE TENDER CALLED TO MAKE SURE THE PATIENT IS ON THE WAITING LIST AND TO MAKE SURE [facility] GOT THE REFERRAL. [facility] ADMISSIONS.STATES THAT THE PATIENT IS ON THE LIST AND IT WOULD BE THRUSDAY OR DAVID FOR A BED TO OPEN UP. PATIENT UPDATED ABOUT [facility] BED STATUS.
--- NOTE | 2023-07-07 12:48 | NUR ---
UR NOTE MCG BOWEL SURGERY; COLECTOMY, WITH OR WITHOUT OSTOMY, BY LAPAROSCOPY (ISC) 07/07/23 VARIANCE GL DAY 4
[2023-07-07 13:15] VITALS: BP 136/60
--- NOTE | 2023-07-07 13:35 | NUR ---
PT LYING IN BED, STATES "I AM DOING OKAY, JUST RESTING". PT STATES NO NEEDS AT THIS TIME, DENIES PAIN. CALL LIGHT WITHIN REACH, BED RAILS UP.
--- NOTE | 2023-07-07 14:28 | NUR ---
MET WITH PATIENT AND SON. SON WAS CONCERNED THAT HIS MOTHER WANTED TO GO TO [facility] AND THERE WERE NO BEDS AVAILABLE UNTIL NEXT WEEK THRUS OR MONDAY. PATIENT IS OK WITH [facility] AND CAN TAKE THE PATIENT MONDAY THE December. IF ANYTHING CHANGES AND [facility] GETS A OPENING THE FAMILY WANTS TO GO TO [facility]. PATIENT AND SON ARE HAPPY WITH THIS CHOICE AND SEEM HAPPY WE HAD THIS TALK.
--- NOTE | 2023-07-07 14:29 | NUR ---
PT LYING IN BED VISITING WITH FAMILY, STATES NO NEEDS AT THIS TIME. PT USED BSC WITH PHYSICAL THERAPY, SMALL LOOSE BM RED IN COLOR. CALL LIGHT WITHIN REACH, BED RAILS UP.
--- NOTE | 2023-07-07 16:04 | PATH ---
[facility] [address] [place], [place] [address] Signed SPECIMEN(S): A RIGHT COLON W/PORTION OF RT OMENTUM SPECIMEN SOURCE: A. 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 - See synoptic report. COLON AND RECTUM: Resection, Including Transanal Disk Excision of Rectal Neoplasms SPECIMEN Procedure: Right hemicolectomy TUMOR Tumor Site: Cecum Histologic Type: Mucinous adenocarcinoma Histologic Grade: G3, poorly differentiated Tumor Size: Greatest dimension (Centimeters) - 8.7 x 6.5 x 1.6 cm Tumor Extent: Invades through muscularis propria into the pericolonic or perirectal tissue Macroscopic Tumor Perforation: Not identified Lymphovascular Invasion: Not identified Perineural Invasion: Not identified Number of Tumor Buds: 4 per 'hotspot' field Tumor Stevens [place] Score: Low (0-4) Treatment Effect: No known presurgical therapy MARGINS Margin Status for Invasive Carcinoma: All margins negative for invasive carcinoma Closest Margin(s) to Invasive Carcinoma: Radial (circumferential) or mesenteric Distance from Invasive Carcinoma to Closest Margin: 4.5 cm Distance from Invasive Carcinoma to Radial (Circumferential) Margin: Distance already reported as closest margin Margin Status for Non-Invasive Tumor: Not applicable REGIONAL LYMPH NODES Regional Lymph Node Status: All regional lymph nodes negative for tumor PATIENT NAME: BRYAN RODRIGUEZ PATHOLOGY DATE OF : 39 REPORT #: [id number] PHYSICIAN: QUANG PATHOLOGY PCP: BETHANY TAY MD REPORT IS CONFIDENTIAL AND NOT TO BE RELEASED WITHOUT AUTHORIZATION [facility] [address] [place], [place] [address] Signed Number of Lymph Nodes Examined: 17 Tumor Deposits: Not identified PATHOLOGIC STAGE CLASSIFICATION (pTNM, AJCC 8th Edition) Reporting of pT, pN, and (when applicable) pM categories is based on information available to the pathologist at the time the report is issued. As per the AJCC (Chapter 1, 8th Ed.) it is the managing physician's responsibility to establish the final pathologic stage based upon all pertinent information, including but potentially not limited to this pathology report. 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 As part of the [employer] quality improvement specialist program the case has been reviewed by a second pathologist. (JIN) LETI MICROSCOPIC EXAMINATION: Histologic sections of all submitted blocks are examined by light microscopy. These findings, together with the gross examination, support the pathologic diagnosis. GROSS DESCRIPTION: The specimen, labeled and designated "Pointer, N, " and designated on the requisition "right colon with portion of right omentum," is received in formalin and consists of A previously opened segment of large bowel, with attached terminal ileum and appendix. The mesentery is disrupted and shaggy. The serosal surface of the large bowel is pink focally congested with an area of puckering that is 3.5 x 3.0 cm and displays black dye discoloration. Adjacent to the area of puckering is an adherent portion of omentum that is 6.5 x 6.0 x 0.9 cm. The area of puckering is inked blue. Due to disruption of the pericolonic adipose tissue the retroperitoneal soft tissue resection margin cannot be grossly assessed. The right colon is 15.5 cm in length and has an average internal circumference of 6.0 cm. The terminal ileum is 6.5 cm in length and has an average internal circumference of 4.0 cm. The appendix measures 5.8 x 0.5 cm. The serosal PATIENT NAME: BRYAN RODRIGUEZ PATHOLOGY DATE OF : 39 REPORT #: [id number] PHYSICIAN: QUANG PATHOLOGY PCP: BETHANY TAY MD REPORT IS CONFIDENTIAL AND NOT TO BE RELEASED WITHOUT AUTHORIZATION [facility] [address] [place], [place] [address] Signed surface of the appendix is disrupted at the distal aspect. The mesenteric serosal surface is inked green. Present within the cecum is a 8.7 x 6.5 x 1.6 cm partially ulcerated and polypoid mass. This mass is located 8.3 cm from the distal resection margin, 9.2 cm from the proximal resection margin, and 4.5 cm from the vascular root resection margin. Involvement of the appendiceal orifice or ileocecal valve is not grossly identified. Sectioning through the mass reveals extension through the muscularis propria and into the adjacent pericolonic adipose tissue. The mass abuts the blue inked antimesenteric serosal surface (blue) in the area of puckering and is 0.3 cm from the mesenteric serosal surface (green). The mass is firmly adherent to adherent omentum. The remaining mucosa is yellow-valderrama and finely granular. The right colon has an average wall thickness of 0.7 cm. The terminal ileum has an average wall thickness of 0.6 cm and displays a yellow-green finely granular mucosa. The appendix displays a pinpoint lumen and a pale pink finely granular mucosa. Upon dissection of the attached pericolonic adipose tissue multiple possible lymph nodes are grossly identified. Two of these lymph nodes are within close proximity of the vascular root resection margin. City Manager sections are submitted in 12 cassettes. Cassette Summary: (A1) distal resection margin, shave (A2) proximal resection margin, shave (A3) vascular root resection margin, shave (A4) appendix (A5) mass to uninvolved large bowel (A6) mass to adjacent pericolonic adipose tissue and mesenteric serosal surface (A7) mass to adherent omentum (A8) uninvolved omentum (A9) two possible lymph nodes within close proximity of vascular root, sectioned, one inked (A10) seven possible lymph nodes, submitted whole (A11) four possible lymph nodes, submitted whole (A12) three possible lymph nodes, submitted whole FB (under the direct supervision of a pathologist) The Gross Description was prepared using a voice recognition system. The report was reviewed for accuracy; however, sound-alike word errors, addition and/or deletions may occur. If there is any PATIENT NAME: BRYAN RODRIGUEZ PATHOLOGY DATE OF : 39 REPORT #: [id number] PHYSICIAN: QUANG WARD PCP: BETHANY TAY MD REPORT IS CONFIDENTIAL AND NOT TO BE RELEASED WITHOUT AUTHORIZATION [place] [id number] Signed question about this report, please contact Client Services. ADDITIONAL NOTES: Immunohistochemical and/or in situ hybridization studies if performed in this case included appropriate positive controls that reacted as expected. This test was developed and its performance characteristics determined by [facility]. It has not been cleared or approved by the U.S. Food and Drug Administration. The FDA has determined that such clearance or approval is not necessary. This test is used for clinical purposes. It should not be regarded as investigational or for research. [facility] is certified under the Clinical Laboratory Improvement Amendments of 1988 (CLIA) as qualified to perform high complexity clinical laboratory testing. PERFORMING LABORATORY: Technical component was performed by [facility], [address] [place] [id number] (CLIA# [id number]). Professional interpretation was performed by [facility] - [place] [facility] - [address] [place] [address] (CLIA#: [id number]). Diagnostician: Adiel Dodge MD Pathologist Electronically Signed 07/07/2023 Copies: ~ PATIENT NAME: BRYAN RODRIGUEZ PATHOLOGY DATE OF : 39 REPORT #: [id number] PHYSICIAN: QUANG PATHOLOGY PCP: BETHANY TAY MD REPORT IS CONFIDENTIAL AND NOT TO BE RELEASED WITHOUT AUTHORIZATION
--- NOTE | 2023-07-07 16:17 | NUR ---
PT STATES PAIN IS INTERMITTENTLY GOING FROM 0-7, DENIES PAIN MEDICATION AT THIS TIME. ABDOMINAL ASSESSMENT UNCHANGED FROM PREVIOUS, WOUND ASSESSMENT UNCHANGED FROM PREVIOUS. PT STATES NO FURTHER NEEDS AT THIS TIME, CALL LIGHT WITHIN REACH, BED RAILS UP, FAMILY AT THE BEDSIDE.
--- NOTE | 2023-07-07 17:33 | NUR ---
THIS RN CALLED DR. BELLA AND UPDATED ON PT STATUS AND ASSESSMENT, NEW ORDERS GIVEN, PLACED, REPEAT BACK PERFORMED.
[2023-07-07 17:52] VITALS: BP 140/57
--- NOTE | 2023-07-07 18:49 | NUR ---
PT HERE POST-OP DAY 8 FROM A LAPOROSCOPIC RIGHT HEMICOLECTOMY. SURGICAL SITE DRESSING D/I. PT AMBULATING VIA X1 PERSON ASSIST AND FWW. PT TOLERATING 60G CARB DIET WELL, BUT HAS SMALL APPETITE. BMs TODAY CONTINUE TO HAVE BLOOD, LOOSE. PT STATES PAIN IS 0-7 INTERMITTENTLY TODAY D/T "GAS PAIN", DENIES NEED FOR PAIN MEDICATION TODAY. ACHS BLOOD SUGAR CHECKS WITH SS INSULIN. PT HAS MULTIPLE FAMILY MEMBERS VISIT TODAY. PT PLANS TO EVENTUALLY GO TO [facility] IN [place], WORKED WITH CASE MANAGEMENT TODAY. PT WORKED WITH PHYSICAL THERAPY TODAY. PT USES CALL LIGHT APPROPRIATELY.
[2023-07-07 21:36] VITALS: BP 150/72
--- NOTE | 2023-07-08 00:02 | NUR ---
RESTING, EYES CLOSED, HOB ELEVATED, NO DISTRESS, ON ROOM AIR. R ARM ELEVATED IN PILLOWS. FLUIDS AND CALL LIGHT AT HANDS REACH
--- NOTE | 2023-07-08 02:11 | NUR ---
RESTING EYES CLOSED, NO S/SX DISTRESS, OR S/SX LOW/HIGH BLOOD SUGARS, CALL LIGHT AND FLUIDSA T HANDS REACH
--- NOTE | 2023-07-08 02:32 | NUR ---
Pt used call light, "I saw you as you were closing the door". Up to BSC 1PA/FWW, incontinent of smear of gelatinous maroon colored bm and urine. dribbeled bm and urine to BSC. several small to medium sized soft gelatinous maroon colored bm noted mixed with urine. skin care done , clean attends back to bed, tolerated fair. no c/o pain
--- NOTE | 2023-07-08 04:05 | NUR ---
resting, eyes closed, no resp distress. R arm elevated in pillows, edema no chagnes. call light and fluids at hands reach
[2023-07-08 05:37] LABS: HEMATOCRIT 33.1 % (35.0-50.0); HEMOGLOBIN 10.7 g/dL (12.0-18.0); MCHC 32.2 g/dl (30-36); MCV 80.6 fl (81-99); PLATELET COUNT 443 K/uL (140-440)
[2023-07-08 06:14] LABS: EOSINOPHILS, MANUAL DIFF 3; LYMPHOCYTES, MANUAL DIFF 10; MONOCYTES, MANUAL DIFF 3; NEUTROPHILS, MANUAL DIFF 84
[2023-07-08 06:33] VITALS: BP 131/60
--- NOTE | 2023-07-08 06:42 | NUR ---
PT HAS SLEPT WELL THIS SHIFT. CONTINUES TO C/O 'AIR BUBBLE' LIKE ABD PAIN. JUST MEDICATED WITH TYLENOL 1000MG AT THIS TIME PER 4/10 ABD PAIN. REASSURED. wAS UP TO BSC TWICE THIS SHIFT, VOIDED QS, HAD ONE EPISODE OF GELATINOUS MAROON COLORED BLOBS OF BM. SKINC ARE AND ATTENDS CHANGED. 1PA/FWW, TOLERANCE FAIR TO POOR, EASILY TIRED. WEAK LE. TOLERATING FLUIDS WELL, NO N/V. PT IS TO BE DC TO REHAB FACILITY SOON BED AVAILABLE.
--- NOTE | 2023-07-08 10:47 | NUR ---
rounded on pt. medication administration completed. pt is a/o, respirations even and regular. pt is sitting up in bed. still c/o gas pain. denies any other needs att. call light within reach.
--- NOTE | 2023-07-08 12:40 | NUR ---
ROUNDED ON PT. PT IS A/O, RESPIRATIONS EVEN AND REGULAR. SITTING UP IN BED. ATE APPROX 30% OF LUNCH. DENIES ANY OTHER NEEDS ATT. CALL LIGHT WITHIN REACH.
[2023-07-08 13:34] VITALS: BP 136/68
--- NOTE | 2023-07-08 16:02 | NUR ---
MEDICATION ADMINISTRATION COMPLETED. PT IS A/O, RESPIRATIONS EVEN AND REGULAR. DENIES NEEDS ATT.
[2023-07-08 17:55] VITALS: BP 137/64
--- NOTE | 2023-07-08 17:59 | NUR ---
PT APPEARS TO BE SLEEPING COMFORTABLY. RESPIRATIONS EVEN AND REGULAR. CALL LIGHT WITHIN REACH.
--- NOTE | 2023-07-08 19:29 | NUR ---
REPORT RECEIVED FROM DAY SHIFT RN. PT LYING IN BED ALERT AND ORIENTED. DENIES NEEDS. WHITE BOARD UPDATED. CALL LIGHT IN REACH.
[2023-07-08 20:42] VITALS: BP 130/62
--- NOTE | 2023-07-08 21:16 | NUR ---
EVENING ASSESSMENT COMPLETE. SCHEDULED MEDS ADMIN PER EMAR. PT DENIES ABD PAIN OR NAUSEA. REPORTS "GAS" PAINS. ABD LAP SITES X 3 WITH STERI STRIPS INTACT. BOWEL TONES ACTIVE. ABD SOFT. ASSISTED PT WITH ORAL CARE AND TO REPOSITION FOR COMFORT. SCD'S IN PLACE. PT DENIES QUESTIONS OR CONCERNS. CALL LIGHT IN REACH.
--- NOTE | 2023-07-08 23:08 | NUR ---
PT RESTING IN BED WITH EYES CLOSED. RESPIRATIONS EVEN. CALL LIGHT IN REACH.
--- NOTE | 2023-07-09 00:14 | NUR ---
PT UP TO BSC WITH FWW AND SBA TO VOID. GAIT UNSTEADY AT TIMES. STAFF ASSIST WITH MARY CARE. BACK TO BED, JARRED WELL. SCD'S IN PLACE. NO FURTHER NEEDS.
--- NOTE | 2023-07-09 03:09 | NUR ---
PT AWAKE IN BED. REPORTS SHE IS RESTING COMFORTABLY. DENIES NEEDS AT THIS TIME. CALL LIGHT IN REACH.
[2023-07-09 04:17] VITALS: BP 147/66
--- NOTE | 2023-07-09 04:35 | NUR ---
CALL LIGHT ANSWERED. PT UP TO BR WITH FWW AND SBA TO VOID. GAIT STEADY. STAFF ASSIST WITH MARY CARE. BACK TO BED, JARRED WELL. PT DENIES PAIN OR NAUSEA. BOWEL TONES ACTIVE. ABD SOFT. LAP SITES X 3 WITH STERI STRIPS INTACT. OLD DRAINAGE NOTED. VS AND I&O OBTAINED. NO FURTHER NEEDS.
--- NOTE | 2023-07-09 07:07 | NUR ---
Pt report received from TAMIKO Briceño. Pt is resting in bed, supine, with eyes open, lights off. Call light in reach. Denies any needs at this time.
[2023-07-09 08:54] VITALS: BP 139/62
--- NOTE | 2023-07-09 11:12 | NUR ---
In for med administration per EMAR. Pt is currently seated in a wheelchair outside her room, working with the physical therapist. PT advises the pt has worked on ambulating with walker, stairs, and has done well. Pt states she is exhausted. Pt tolerated her PO carafate in halves. Pt denies further needs at this time. Call light in reach.
[2023-07-09 14:47] VITALS: BP 132/57
--- NOTE | 2023-07-09 14:48 | NUR ---
VITALS, I/O COMPLETE. PATIENT UP TO COMMODE FOR LARGE BM. PATIENT GIVEN BED BATH AND FRESH GOWN.
--- NOTE | 2023-07-09 19:19 | NUR ---
REPORT RECEIVED FROM DAY SHIFT RN. PT LYING IN BED ON RIGHT SIDE WITH EYES CLOSED. RESPIRATIONS EVEN. WHITE BOARD UPDATED. CALL LIGHT IN REACH.
[2023-07-09 21:21] VITALS: BP 139/62
--- NOTE | 2023-07-09 21:59 | NUR ---
EVENING ASSESSMENT COMPLETE. SCHEDULED MEDS ADMIN PER EMAR. PT DENIES PAIN OR NAUSEA. LAP SITES X 3 WITH STERI STRIPS INTACT. OLD DRAINAGE NOTED. BOWEL TONES ACTIVE. ABD SOFT. PT REPORTS FLATUS. VS AND I&O OBTAINED. PT DENIES QUESTIONS OR CONCERNS. CALL LIGHT IN REACH.
--- NOTE | 2023-07-10 | NUR ---
PT UP TO BSC WITH SBA AND FWW TO VOID. STAFF ASSIST WITH MARY CARE. GAIT STEADY. BACK TO BED, JARRED WELL. NO FURTHER NEEDS.
--- NOTE | 2023-07-10 02:30 | NUR ---
PT RESTING IN BED WITH EYES CLOSED. RESPIRATIONS EVEN. CALL LIGHT IN REACH.
--- NOTE | 2023-07-10 03:14 | NUR ---
PATIENT CALLED TO USE THE BEDSIDE COMMODE. VOIDED 400ML YELLOW URINE AND BM SMALL DARK BROWN SEMI FORMED. PATIENT IS BACK IN BED. DENIES FURTHER NEEDS AT THIS TIME.
--- NOTE | 2023-07-10 03:36 | NUR ---
PT DENIES PAIN OR NAUSEA. ABD ASSESSMENT UNCHANGED. REPORTS SHE HAS BEEN RESTING WELL. NO NEEDS AT THIS TIME.
[2023-07-10 06:24] VITALS: BP 138/57
--- NOTE | 2023-07-10 06:31 | NUR ---
VS AND I&O OBTAINED. PT UP TO BSC TO VOID. STAFF ASSIST WITH MARY CARE. GAIT STEADY. SCHEDULED MEDS ADMIN PER EMAR. NO FURTHER NEEDS.
--- NOTE | 2023-07-10 07:33 | NUR ---
PT AWAKE AND INTERACTIVE AT TIME OF SHIFT REPORT. AGREES SHE IS COMFORTABLE, COFFEE PROVIDED PER REQUEST. CALL LIGHT IN REACH, OTHER NEEDS DENIED
[2023-07-10 07:59] VITALS: BP 142/60
--- NOTE | 2023-07-10 09:33 | NUR ---
PT EATS VERY LITTLE BREAKFAST DENIES WANT OF OTHER ITEMS. RESTING EYES CLOSED NOW DENIES DISCOMFORTS OR NEEDS.
[2023-07-10 09:49] VITALS: BP 116/42
--- NOTE | 2023-07-10 11:01 | NUR ---
PT WORKING WITH P/T.
--- NOTE | 2023-07-10 11:56 | NUR ---
P/T WELL TOLERATED PT ABLE TO AMBULATE A GOOD DISTANCE IN THE GABRIEL. RETURNS TO THE ROOM SITTING UP IN THE CHAIR, DENIES NEEDS OF. CALL LIGHT IN REACH
[2023-07-10 13:38] VITALS: BP 124/48
--- NOTE | 2023-07-10 14:52 | NUR ---
PATIENT UP FROM CHAIR TO BSC THEN TO BED, 1PA FWW. MARY CARE DONE. CALL LIGHT IN REACH. NO FURTHER NEEDS AT THIS TIME.
--- NOTE | 2023-07-10 15:16 | NUR ---
PT USES CALL LIGHT APPROPRIATELY REQUESTS SNACK OF FRUIT AND PUDDING. SITTING UP IN BED DENIES DISCOMFORTS OR NEEDS. CALL LIGHT AND NEEDED ITEMS AT BEDISDE
--- NOTE | 2023-07-10 17:37 | NUR ---
PT SITTING UP IN BED EATING EVENING MEAL. DENIES NEED OF OTHER ITEMS
[2023-07-10 18:21] VITALS: BP 135/57
--- NOTE | 2023-07-10 18:25 | NUR ---
PATIENT SITTING UP IN BED WATCHING TV. VITALS AND I&O'S CHARTED. CALL LIGHT IN REACH. NO FURTHER NEEDS AT THIS TIME.
--- NOTE | 2023-07-10 19:29 | NUR ---
REPORT RECEIVED FROM DAY SHIFT RN. PT LYING IN BED ALERT AND ORIENTED. DENIES NEEDS. WHITE BOARD UPDATED. CALL LIGHT IN REACH.
[2023-07-10 21:14] VITALS: BP 157/71
--- NOTE | 2023-07-10 21:43 | NUR ---
PT UP TO BSC TO VOID AND HAVE SMALL SOFT BROWN BM WITH FWW AND SBA. GAIT STEADY. STAFF ASSIST WITH MARY CARE. BACK TO BED, JARRED WELL. VS AND I&O OBTAINED. EVENING ASSESSMENT COMPLETE. SCHEDULED MEDS ADMIN PER EMAR. PT DENIES PAIN OR NAUSEA. BOWEL TONES ACTIVE. ABD SOFT. LAP SITES X 3 WITH STERI STRIPS INTACT. OLD DRAINAGE NOTED. RIGHT HAND EDEMA NOTED. ELEVATED ON PILLOW. PT DENIES QUESTIONS OR CONCERNS. CALL LIGHT IN REACH.
--- NOTE | 2023-07-11 00:15 | NUR ---
PATIENT CALLED TO USE THE BEDSIDE COMMODE. 1PA USING WALKER. PATIENT VOIDED 400ML LIGHT YELLOW URINE. MARY CARE ASSISTED. NEW PULL UPS PLACED. PATIENT IS BACK IN BED. NO OTHER NEEDS AT THIS TIME.
--- NOTE | 2023-07-11 01:41 | NUR ---
CALL LIGHT ANSWERED. PT REPORTS "GAS BUBBLE" PAIN THAT IS CAUSING NAUSEA AND DISCOMFORT. PRN FOR NAUSEA ADMIN PER EMAR. WARM COMPRESS AND SANDRA MARITA PROVIDED. ASSISTED PT TO REPOSITION IN BED. HOB ELEVATED. NO FURTHER NEEDS.
--- NOTE | 2023-07-11 03:08 | NUR ---
PT RESTING IN BED WITH EYES CLOSED. RESPIRATIONS EVEN. CALL LIGHT IN REACH.
--- NOTE | 2023-07-11 04:25 | NUR ---
PT UP TO BSC TO VOID AND HAVE SMALL SOFT BROWN BM. STAFF ASSIST WITH MARY CARE. PT REPORTS SHE HAS BEEN RESTING WELL AND GAS PAIN/NAUSEA HAS PASSED. NO FURTHER NEEDS.
[2023-07-11 06:05] VITALS: BP 137/57
--- NOTE | 2023-07-11 06:10 | NUR ---
VS AND I&O COMPLETED. WATER AND COFFEE PROVIDED. PT UP TO BSC, FWW SBA, BACK TO BED. PRIMARY RN IN ROOM AT THIS TIME.
--- NOTE | 2023-07-11 06:42 | NUR ---
PT AWAKE SITTING UP IN BED. DENIES PAIN OR NAUSEA. SCHEDULED MEDS ADMIN PER EMAR. NO FURTHER NEEDS AT THIS TIME.
--- NOTE | 2023-07-11 07:24 | NUR ---
HANDOFF REPORT RECEIVED FROM SAMPLER AND TEST PREPARER RN.
--- NOTE | 2023-07-11 08:13 | NUR ---
pt alert and oriented, slurred speech from previsou stroke. pt on room air, lung sounds clear, denies sob. pt denies pain at this time, states abd cramping has resolved. pt with right arm swelling, coban removed and arm elevated. iv saline locked, without redness. pt assisted to chair for breakfast, denture care provided. pt given 2 units ss isnulin for bg 199. pt denies other needs at this time. discussed plan of care for the day
--- NOTE | 2023-07-11 09:30 | NUR ---
Spoke with Lauren. She would prefer placement to [facility]. I have a text into [facility] at [facility] asking if they can take this pt today or tomorrow. Pt denies needs and states he daughter will drive her tomorrow.
[2023-07-11 09:34] VITALS: BP 124/50
--- NOTE | 2023-07-11 10:45 | NUR ---
Assisted pt with shower. Pt needed assistance with washing back, ankles and feet. Pt was able to do other areas of care. Pt returned to bed. Call light in reach. Pt denies further needs at this time.
--- NOTE | 2023-07-11 11:15 | NUR ---
Spoke with Latoya from [facility]. They have accepted this pt for tomorrow at 10;30. Per pt, her daughter will drive her. I called and left a message for the daughter on her cell asking if she will call me and can tranport [place] at 9:30 for admit at 10:30 tomorrow. Order a covid test. Latoya would also like orders today and I texted Dr. Asif asking if he could complete SNF orders today.
--- NOTE | 2023-07-11 11:21 | NUR ---
Received a return call from pts daughter, Jaimee. She will transport pt at 9:30 tomorrow.
--- NOTE | 2023-07-11 12:17 | NUR ---
PT GIVEN 2 UNITS SS INSULIN FOR BG 181. PT DECLINING TO SIT IN CHAIR FOR LUNCH. DR. BELLA AT BEDSIDE.
[2023-07-11 14:02] VITALS: BP 121/49
--- NOTE | 2023-07-11 16:27 | NUR ---
PT GIVEN CARAFATE PER ORDER. PT DENIES NEEDS AT THIS TIME.
[2023-07-11 18:18] VITALS: BP 146/58
--- NOTE | 2023-07-11 18:19 | NUR ---
PATIENT UP TO BSC IN BATHROOM AND BACK TO BED, SBA FWW. VITALS AND I&O'S DONE CHARTED. CALL LIGHT IN REACH. NO FURTHER NEEDS AT THIS TIME.
--- NOTE | 2023-07-11 19:26 | NUR ---
REPORT RECEIVED FROM DAY SHIFT RN. PT LYING IN BED ALERT AND ORIENTED. DENIES NEEDS. WHITE BOARD UPDATED. CALL LIGHT IN REACH.
[2023-07-11 20:47] VITALS: BP 133/53
--- NOTE | 2023-07-11 21:15 | NUR ---
EVENING ASSESSMENT COMPLETE. SCHEDULED MEDS ADMIN PER EMAR. PT DENIES PAIN OR NAUSEA. BOWEL TONES ACTIVE. ABD SOFT. ABD LAP SITES X 3 WITH STERI STRIPS INTACT. NO REDNESS OR NEW DRAINAGE NOTED. ASSISTED PT TO REPOSITION IN BED. PT DENIES QUESTIONS OR CONCERNS. CALL LIGHT IN REACH.
--- NOTE | 2023-07-11 23:17 | NUR ---
PT RESTING IN BED WITH EYES CLOSED. RESPIRATIONS EVEN. CALL LIGHT IN REACH.
--- NOTE | 2023-07-12 00:15 | NUR ---
SBA. PATIENT USED THE CALLED TO USE THE BEDSIDE COMMODE. PATIENT VOIDED 300ML YELLOW URINE AND BM SMALL FORMED. PATIENT IS BACK IN BED. NO FURTHER NEEDS VOICED. .
--- NOTE | 2023-07-12 02:25 | NUR ---
PT RESTING IN BED IN RELAXED POSITION. EYES CLOSED. RESPIRATIONS EVEN. CALL LIGHT IN REACH.
--- NOTE | 2023-07-12 03:12 | NUR ---
PT UP BSC WITH FWW AND MINIMAL SBA. GAIT STEADY. PT ABLE TO DO OWN MARY CARE. BACK TO BED, JARRED WELL. DENIES PAIN OR NAUSEA. ABD ASSESSMENT UNCHANGED. NO FURTHER NEEDS AT THIS TIME.
[2023-07-12 05:57] VITALS: BP 139/63
--- NOTE | 2023-07-12 06:16 | NUR ---
VS AND I&O OBTAINED. SCHEDULED MEDS ADMIN PER EMAR. PT DENIES PAIN OR NAUSEA. UP TO BSC TO VOID. BACK TO BED, JARRED WELL. NO FURTHER NEEDS.
--- NOTE | 2023-07-12 07:18 | NUR ---
REPORT RECEIVED FROM EDGE GLUER TAMIKO ALVAREZ. PATIENT IS SITTING UPRIGHT IN BED AND ALERT AND AWAKE. PATIENT RESPIRATIONS ARE EVEN AND UNLABORED. CALL LIGHT AND PERSONAL BELONGINGS ARE WITHIN REACH.
--- NOTE | 2023-07-12 07:43 | NUR ---
UR NOTE MCG BOWEL SURGERY; COLECTOMY, WITH OR WITHOUT OSTOMY, BY LAPAROSCOPY (ISC) 07/09/23 VARIANCE GL DAY 4 07/10/23 VARIANCE GL DAY 4 07/11/23 MET GL DAY 4
--- NOTE | 2023-07-12 08:25 | NUR ---
Orders, Pasrr, covid test, labs, imaging placed in envelope for family to take to [facility]. Envelope given to Fleet Administrative Assistant.
[2023-07-12 08:44] VITALS: BP 127/58
--- NOTE | 2023-07-12 09:02 | NUR ---
0800 AND 0900 MEDICATIONS ADMINISTERED PER THE EMAR. PATIENT ON BEDSIDE COMMODE UPON ENTERING THE ROOM. PATIENT VOIDED AND HAD A BOWEL MOVEMENT. PATIENT AMBULATED BACK TO BED WITH FRONT WHEELED WALKER AND 1 PERSON ASSIST. PATIENT STATED NO PAIN AT THIS TIME. PATIENT STATED HAVING NUMBNESS AND TINGLING IN THE RIGHT ARM AND RIGHT LEG BUT THAT IS BASELINE FOR HER. PATIENT LUNG SOUNDS ARE CLEAR BILATERALLY IN ALL LUNG DOVE. NORMAL S1 AND S2 AUSCULTATED. PATIENT WITH GENERALIZED EDEMA IN THE RIGHT ARM AND +1 EDEMA IN THE RIGHT HAND. PATIENT BOWEL TONES ARE ACTIVE IN ALL FOUR QUADRANTS. STERI STRIPS ON THE ABDOMEN ARE INTACT WITH DRY DRAINAGE. PATIENT FINISHED WITH BREAKFAST. PATIENT STATED NO FURTHER NEEDS AT THIS TIME. CALL LIGHT AND PERSONAL BELONGINGS ARE WITHIN REACH.
--- NOTE | 2023-07-12 09:19 | NUR ---
IN TO GET PATIENT READY TO DC. IV TAKEN OUT UPON RN REQUEST. IV IN TACT AND LOOKED GOOD, RN NOTIFIED. VITALS AND I&O'S DONE AND CHARTED. PATIENT SITTING ON EDGE OF BED WAITING FOR DAUGHTER. CALL LIGHT IN REACH.
--- NOTE | 2023-07-12 09:31 | NUR ---
MS MILI. PT JUST GETTING READY TO DISCHARGE. GAVE PRAYER QUILT. ASSURED HER OF MY ONGOING PRAYERS. PT EXPRESSED APPRECIATION AND GRATITUDE.
[2023-07-12] MEDS ORDERED: ACETAMINOPHEN500 MG PO (09:49)
[2023-07-12] MEDS ORDERED: CIPROFLOXACIN500 MG PO (09:49)
[2023-07-12] MEDS ORDERED: SUCRALFATE1 GM PO (09:50)
--- NOTE | 2023-07-12 10:04 | NUR ---
GAVE REPORT TO TAMIKO FERNANDEZ AT [facility] IN [place]. REPORT COMPLETE AND RN STATED NO FURTHER QUESTIONS. CALL ENDED.
--- NOTE | 2023-07-12 10:51 | DS ---
[facility] [address] [place], [place] [address] Signed ADMISSION DATE: 06/29/2023 DISCHARGE DATE: 07/12/2023 REASON FOR ADMISSION: Cecal tumor for resection. HISTORY OF PRESENT ILLNESS: This 88-year-old white woman is a patient of Dr. Bethany Young, who was found to have a significant anemia requiring 3 units of blood transfusion. She has numerous medical problems including diabetes type 2, hypertension, hyperlipidemia, chronic kidney disease, and moderate asthma. 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 The patient underwent a CT scan of the abdomen on June 07, 2023, showing a lobulated wall thickening of the ascending colon measuring 6.5 cm in length with pericolonic stranding suggestive of primary colonic tumor. She underwent colonoscopy by me on June 15, 2023 confirming a neoplasm of the ascending colon, which was well marked with endoscopic tattoo dye. Preoperative CEA level was found to be normal. She is admitted at this time to undergo right colectomy preferred by laparoscopic approach. We are mindful of her significant frailty overall and numerous medical comorbidities. She and her family understand the risk of the operation and wished to proceed. HOSPITAL COURSE: She underwent laparoscopic right colectomy on 06/29/2023. A lmie-ct-osuc stapled anastomosis was undertaken in an extracorporeal fashion. The tumor was found to be bulky. Pathology report confirmed a poorly differentiated grade 3 adenocarcinoma with all margins negative for disease and 17 lymph nodes resected, none of which showed any evidence of metastatic disease. 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 She was maintained on opiate free regimen postoperatively. The patient was noted to have gross blood per rectum on postop day 1. I attributed this to the stapled anastomosis. She had no hematemesis. She was given a regular diet, which she actually tolerated well. Consideration was made for administration of TXA (tranexamic acid, however, given her prior history of cerebrovascular accident it was deemed unwise and particularly since most episodes of anastomotic bleeding with staple anastomosis is close and discontinue bleeding on their own. She is noted to have a markedly elevated white count of 28,000 by postop day 2. Electronically Signed By: MITCHELL BELLA MD 07/12/23 1051 PATIENT NAME: BRYAN RODRIGUEZ DISCHARGE SUMMARY DATE OF : 39 REPORT #: [id number] PHYSICIAN: MITCHELL BELLA MD PCP: BETHANY YOUNG MD REPORT IS CONFIDENTIAL AND NOT TO BE RELEASED WITHOUT AUTHORIZATION [facility] [address] [place], [place] [address] Signed Urinalysis was obtained which showed mild findings suggestive of urinary tract infection. On that basis, she was maintained on Cipro antibiotic. A chest x-ray was negative. Urinalysis showed 3 to 4 white cells per high-power field and trace leukocyte esterase. She had progressive improvement of her white count. She still had episodes of small amount of rectal bleeding, although not hypotensive or showing sign of active bleeding clinically. Her hematocrit was 24 at admission and 22 postop and therefore, she did undergo transfusion therapy. Two units were transfused bringing her hematocrit to 33. She was additionally treated with Carafate and Protonix as she has a distant history of peptic ulcer disease. Consideration was made for endoscopic evaluation, but this was not performed as there is a small but real chance of disruption of the anastomosis itself. She remained stable and her episodic rectal bleeding resolved entirely. She had progressive improvement and was given physical therapy and occupational therapy due to her general infirmity and frailty. She wished to go to [facility], which she is familiar with from her prior stay there during a stroke. She was ultimately discharged to [facility] per her request on July 12, 2023. She is due to see me back in the office in approximately one month. Of special note, her pathology report showed no evidence of metastatic disease to regional lymph nodes and therefore she will not be recommended for additional chemotherapy or other intervention. DISCHARGE MEDICATIONS: Include: 1. Cipro 500 mg p.o. b.i.d. #10. 2. Tylenol 500 mg two tablets p.o. q.6 hours as needed for pain, #30. 3. Sucralfate 1 g p.o. q.i.d. on empty stomach. 4. She will resume usual medication of amlodipine 10 mg p.o. at bedtime. 5. Biotin 5000 mcg tabs p.o. daily. 6. Folic acid 1 mg p.o. daily. 7. Garlic tablet 400 mg p.o. daily. 8. Metoprolol 100 mg tablet one-half tab p.o. b.i.d. 9. Niacin 500 mg p.o. daily. 10. Pulmicort Flexhaler two puffs for shortness of breath p.r.n. 11. Vitamin C 500 mg p.o. daily. 12. Zinc 50 mg p.o. daily. 13. Omeprazole 20 mg p.o. b.i.d. 14. Irbesartan 150 mg p.o. at bedtime. 15. Aspirin-dipyridamole 1 cap p.o. b.i.d. 16. Simvastatin 20 mg p.o. daily. Electronically Signed By: MITCHELL BELLA MD 07/12/23 1051 PATIENT NAME: BRYAN RODRIGUEZ DISCHARGE SUMMARY DATE OF : 39 REPORT #: [id number] PHYSICIAN: MITCHELL BELLA MD PCP: BETHANY YOUNG MD REPORT IS CONFIDENTIAL AND NOT TO BE RELEASED WITHOUT AUTHORIZATION [facility] [address] [place] [id number] Signed 17. Metformin 500 mg p.o. b.i.d. 18. Albuterol sulfate two tabs inhaled q.4 hours p.r.n. shortness of breath. DISCHARGE DIAGNOSES: 1. Adenocarcinoma of cecum, status post laparoscopic right colectomy June 29, 2023. 2. Postoperative rectal bleeding attributed to anastomosis (resolved). 3. Frailty. 4. Distant history of cerebrovascular accident x2 with resultant speech impediment. 5. Dyslipidemia. 6. Hypertension. 7. Gastroesophageal reflux including hiatal hernia. 8. Dyslipidemia. 9. Suspicion for urinary tract infection treated (Cipro). MD MAKAYLA Feliciano/TUYETL /[id number] cc: Bethany Young MD Copies: BETHANY YOUNG MD ~ Electronically Signed By: MITCHELL BELLA MD 07/12/23 1051 PATIENT NAME: BRYAN RODRIGUEZ DISCHARGE SUMMARY DATE OF : 39 REPORT #: [id number] PHYSICIAN: MITCHELL BELLA MD PCP: BETHANY YOUNG MD REPORT IS CONFIDENTIAL AND NOT TO BE RELEASED WITHOUT AUTHORIZATION
== END 2023-07-12 09:25 | DRG 330 ==
LOC: DSVR 06-29 07:54 → MS 06-29 07:54 → DSVR 06-29 07:55 → MS 06-29 10:30
PROVIDERS: ADMIT Surgery; ATTEND Surgery
PROC: 0DBU4ZZ Excision of Omentum, Percutaneous Endoscopic Approach (ICD-10-PCS; 2023-06-29)
PROC: 0DTF4ZZ Resection of Right Large Intestine, Percutaneous Endoscopic Approach (ICD-10-PCS; principal; 2023-06-29 10:30)
PROC: 30233N1 Transfusion of Nonautologous Red Blood Cells into Peripheral Vein, Percutaneous Approach (ICD-10-PCS; 2023-07-03)
DX: C18.0 Malignant neoplasm of cecum (principal); K91.840 Postprocedural hemorrhage of a digestive system organ or structure following a digestive system procedure; N39.0 Urinary tract infection, site not specified; R54 Age-related physical debility; I69.328 Other speech and language deficits following cerebral infarction; E78.5 Hyperlipidemia, unspecified; K21.9 Gastro-esophageal reflux disease without esophagitis; K44.9 Diaphragmatic hernia without obstruction or gangrene; E11.22 Type 2 diabetes mellitus with diabetic chronic kidney disease; I12.9 Hypertensive chronic kidney disease with stage 1 through stage 4 chronic kidney disease, or unspecified chronic kidney disease; N18.9 Chronic kidney disease, unspecified; J45.909 Unspecified asthma, uncomplicated; D50.9 Iron deficiency anemia, unspecified; Z87.11 Personal history of peptic ulcer disease; Y83.8 Other surgical procedures as the cause of abnormal reaction of the patient, or of later complication, without mention of misadventure at the time of the procedure; Z88.5 Allergy status to narcotic agent; Z88.0 Allergy status to penicillin; Z91.040 Latex allergy status; Z79.82 Long term (current) use of aspirin; Z79.84 Long term (current) use of oral hypoglycemic drugs; Z90.710 Acquired absence of both cervix and uterus; Z90.79 Acquired absence of other genital organ(s); Z90.722 Acquired absence of ovaries, bilateral; Z88.8 Allergy status to other drugs, medicaments and biological substances
CPT/HCPCS: 00840; 36415; 71045; 80053; 81001; 83605; 85025; 85060; 86850; 86900; 86901; 86922; 88309; 93005; 93010; 97110; 97116; 97162; 97530; A9270; C9113; C9803; J0131; J0690; J1100; J1170; J1644; J1815; J1885; J2001; J2405; J2704; J3010; J3475; J3490; J7121; P9016; U0002

== ENCOUNTER 2025-01-02 07:53 | Day surgery (SDC) | payer MEDICARE, OTHER ==
[2024-12-19 09:13] VITALS: BP 128/94
[~2025-01-02] VITALS: Ht 165.1 cm; Wt 60.4 kg
[~2025-01-02 07:53] MED LIST changes: +ACETAMINOPHEN500 MG PO; +ASPIRIN-DIPYRI1 EACH PO; +CIPROFLOXACIN500 MG PO; +DIPYRIDAMOLE25 MG; +IBLOOD GLUCOSE TEST STRIP 1 EA TEST VI PRN; +IRBESARTAN150 MG PO; +LACTATED RINGER'S 1,000 ML IV SCH; +LIDOCAINE HCL 1% 5 ML SDV INJ ONE; +LIPITOR10 MG PO; +METFORMIN HCL500 MG PO; +SIMVASTATIN20 MG PO; +SUCRALFATE1 GM PO
[2025-01-02 08:14] VITALS: BP 186/86
[2025-01-02] MEDS ORDERED: propofoL 200 MG/20 ML VIAL ONE (10:00)
--- NOTE | 2025-01-02 10:20 | NUR ---
01/02/25 1020 Damaris Gu 1015-PATIENT ARRIVED TO PACU ON RA DROWSY BUT AWAKE. DENIES PAIN OR NAUSEA. PATIENT LAYING LEFT LATERAL ABDOMEN SOFT. IVF INFUSING. SR HR 70'S.
[2025-01-02 10:50] VITALS: BP 175/78
--- NOTE | 2025-01-02 15:53 | OR ---
[facility] [address] [place], [place] [address] Signed DATE OF OPERATION: 01/02/2025 SURGEON: Mitchell Bella MD PREOPERATIVE DIAGNOSIS: History of cecal carcinoma, status post right colectomy, June 29, 2023. POSTOPERATIVE DIAGNOSES: 1. Multiple polyps (seven). 2. Diverticulosis. 3. Internal hemorrhoids. INDICATION: This 89-year-old white woman underwent right laparoscopic-assisted colectomy by ar for cecal carcinoma June 29, 2023. There is no evidence of metastatic disease of the lymph nodes or elsewhere. She has been getting along well. She has no current symptoms. She is admitted at this time to undergo surveillance colonoscopy. She understands the risk of bleeding, infection, and perforation related to colonoscopy and wished to proceed. FINDINGS: The prep was excellent. Complete colonoscopy was undertaken to the right transverse colon where the ileocolic anastomosis was noted to be widely patent. There was a small polyp in that area. It was excised with cold morcellation technique. Additional polyps were noted at the splenic flexure and left colon, sigmoid and rectum. Additionally, retroflexed view did confirm internal hemorrhoidal changes and there were scattered diverticula of the remaining sigmoid and left colon. DESCRIPTION OF PROCEDURE: The patient was brought to the endoscopy suite and placed in lateral decubitus position, given intravenous sedation with propofol infusional technique by the museum docent. A digital rectal examination was normal. An Olympus video colonoscope was passed in the rectum and manipulated throughout the colon ultimately intubating the area of the ileo-transverse colonic anastomosis. The anastomosis was widely patent and easily intubated. A small polyp was noted in the colon in this area. This was excised with cold morcellation technique. Removal of the scope showed two small polyps of the splenic flexure, both excised with cold morcellation technique. Further withdrawal showed another in the mid left colon and another in the sigmoid and ultimately two small polyps in the rectum. The larger of the Electronically Signed By: MITCHELL BELLA MD 01/02/25 1553 PATIENT NAME: BRYAN RODRIGUEZ OPERATIVE REPORT DATE OF : 39 REPORT #: [id number] PHYSICIAN: MITCHELL BELLA MD PCP: BETHANY YOUNG MD REPORT IS CONFIDENTIAL AND NOT TO BE RELEASED WITHOUT AUTHORIZATION [facility] [address] [place] [address] [place], [place] [address] Signed two polyps of the rectum was excised with cold snare technique. Retroflexed view confirmed internal hemorrhoidal changes. The scope was removed. The patient was taken to recovery room in good condition. CONCLUDING DIAGNOSES: Polyps x7. Diverticula (minimal) and internal hemorrhoidal changes. PLAN: Recommend repeat colonoscopy in one year based on the number of polyps and her history of colon cancer. MD MAKAYLA Feliciano/TUYETL /[id number] cc: Bethany Young MD Copies: BETHANY YOUNG MD ~ Electronically Signed By: MITCHELL BELLA MD 01/02/25 1553 PATIENT NAME: BRYAN RODRIGUEZ OPERATIVE REPORT DATE OF : 39 REPORT #: [id number] PHYSICIAN: MITCHELL BELLA MD PCP: BETHANY YOUNG MD REPORT IS CONFIDENTIAL AND NOT TO BE RELEASED WITHOUT AUTHORIZATION
--- NOTE | 2025-01-06 14:38 | PATH ---
[facility] [address] [facility] [place], [place] [address] Signed SPECIMEN(S): A TRANSVERSE COLON POLYP SPECIMEN(S): B SPLENIC FLEXURE COLON POLYP #1 SPECIMEN(S): C SPLENIC FLEXURE COLON POLYP #2 SPECIMEN(S): D DESCENDING COLON POLYP SPECIMEN(S): E SIGMOID POLYP SPECIMEN(S): F RECTAL POLYP #1 SPECIMEN(S): G RECTAL POLYP #2 SPECIMEN SOURCE: A. TRANSVERSE COLON POLYP B. SPLENIC FLEXURE COLON POLYP #1 C. SPLENIC FLEXURE COLON POLYP #2 D. DESCENDING COLON POLYP E. SIGMOID POLYP F. RECTAL POLYP #1 G. RECTAL POLYP #2 CLINICAL HISTORY: Surveillance, history of colon polyps. Multiple polyps, diverticula, hemorrhoids. A-G) polyp FINAL PATHOLOGIC DIAGNOSIS: A. Transverse colon polyp: - Hyperplastic polyp (one fragment). B. Splenic flexure colon polyp #1: - Tubular adenoma (one fragment). C. Splenic flexure colon polyp #2: - Tubular adenoma (two fragments). D. Descending colon polyp: - Polypoid colonic mucosa with slight hyperplastic features (two fragments). E. Sigmoid polyp: - Hyperplastic polyp (three fragments). F. Rectal polyp #1: - Tubular adenoma (one fragment). G. Rectal polyp #2: - Tubular adenoma (one fragment). JVR:smn MICROSCOPIC EXAMINATION: Histologic sections of all submitted blocks are examined by light microscopy. These findings, together with the gross examination, support the pathologic PATIENT NAME: RAJINDERJYOTHIBRYAN PATHOLOGY DATE OF : 39 REPORT #: [id number] PHYSICIAN: QUANG WARD PCP: BETHANY TAY MD REPORT IS CONFIDENTIAL AND NOT TO BE RELEASED WITHOUT AUTHORIZATION [facility] [address] [place], [place] [address] Signed diagnosis. GROSS DESCRIPTION: A. The specimen, labeled and designated "Pointer, N, transverse colon polyp," is received in formalin and consists of two valderrama soft tissue fragments, ranging from 0.2-0.3 cm. Entirely submitted in (A1). B. The specimen, labeled and designated "Pointer, N, splenic flexure colon polyp #1," is received in formalin and consists of two valderrama soft tissue fragments, ranging from 0.2-0.4 cm. Entirely submitted in (B1). C. The specimen, labeled and designated "Pointer, N, splenic flexure colon polyp #2," is received in formalin and consists of five valderrama soft tissue fragments, ranging from 0.2-0.4 cm. Entirely submitted in (C1). D. The specimen, labeled and designated "Pointer, N, descending colon polyp," is received in formalin and consists of one valderrama soft tissue fragment, 0.4 cm. Entirely submitted in (D1). E. The specimen, labeled and designated "Pointer, N, sigmoid polyp," is received in formalin and consists of three valderrama soft tissue fragments, ranging from 0.2-0.3 cm. Entirely submitted in (E1). F. The specimen, labeled and designated "Pointer, N, rectal polyp #1," is received in formalin and consists of one valderrama soft tissue fragment, 0.6 cm. Entirely submitted in (F1). G. The specimen, labeled and designated "Pointer, N, rectal polyp #2," is received in formalin and consists of three valderrama soft tissue fragments, ranging from 0.2-0.3 cm. Entirely submitted in (G1). AB (under the direct supervision of a pathologist) The Gross Description was prepared using a voice recognition system. The report was reviewed for accuracy; however, sound-alike word errors, addition and/or deletions may occur. If there is any question about this report, please contact Client Services. PERFORMING LABORATORY: Technical component was performed by [facility] [employer], [address] [place] [id number] (CLIA# [id number]). Professional interpretation was performed by [facility], [address] [place] [id number] (CLIA#: [id number]). Diagnostician: Adiel Dodge MD Pathologist PATIENT NAME: BRYAN RODRIGUEZ PATHOLOGY DATE OF : 39 REPORT #: [id number] PHYSICIAN: QUANG PATHOLOGY PCP: BETHANY TAY MD REPORT IS CONFIDENTIAL AND NOT TO BE RELEASED WITHOUT AUTHORIZATION [facility] [address] [place] [id number] Signed Electronically Signed 01/06/2025 Copies: ~ PATIENT NAME: BRYAN RODRIGUEZ PATHOLOGY DATE OF : 39 REPORT #: [id number] PHYSICIAN: QUANG PATHOLOGY PCP: BETHANY TAY MD REPORT IS CONFIDENTIAL AND NOT TO BE RELEASED WITHOUT AUTHORIZATION
== END 2025-01-02 11:00 | disposition home or self-care (01) ==
LOC: DS 07:53
PROVIDERS: ATTEND Surgery
PROC: 0DBL8ZX Excision of Transverse Colon, Via Natural or Artificial Opening Endoscopic, Diagnostic (ICD-10-PCS; 2025-01-02)
PROC: 0DBP8ZX Excision of Rectum, Via Natural or Artificial Opening Endoscopic, Diagnostic (ICD-10-PCS; 2025-01-02)
PROC: 0DBN8ZX Excision of Sigmoid Colon, Via Natural or Artificial Opening Endoscopic, Diagnostic (ICD-10-PCS; 2025-01-02)
PROC: 0DBG8ZX Excision of Left Large Intestine, Via Natural or Artificial Opening Endoscopic, Diagnostic (ICD-10-PCS; principal; 2025-01-02 09:30)
DX: Z12.11 Encounter for screening for malignant neoplasm of colon (principal); D12.7 Benign neoplasm of rectosigmoid junction; D12.3 Benign neoplasm of transverse colon; K57.30 Diverticulosis of large intestine without perforation or abscess without bleeding; K64.8 Other hemorrhoids; I10 Essential (primary) hypertension; E11.9 Type 2 diabetes mellitus without complications; C18.9 Malignant neoplasm of colon, unspecified; Z79.84 Long term (current) use of oral hypoglycemic drugs; Z86.73 Personal history of transient ischemic attack (TIA), and cerebral infarction without residual deficits; Z90.79 Acquired absence of other genital organ(s)
CPT/HCPCS: 00811; J2704; J7121